=== PATIENT | male | born 1940 | race Caucasian/White ===

== ENCOUNTER 2017-10-08 05:36 | Day surgery (SDC) | payer MEDICARE ==
[2017-10-07 12:02] VITALS: BMI 25.0
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
[2017-10-08] MEDS ORDERED: CEFAZOLIN/Water 2 GM/20 ML SYRINGE ONE (06:12)
[2017-10-08] MEDS ORDERED: Thrombin 5000 UNITS/5 ML VIAL ONE (06:16)
[2017-10-08] MEDS ORDERED: Sodium Chloride 0.9% 10 ML ONE (06:16)
[2017-10-08] MEDS ORDERED: Fentanyl 100 MCG/2 ML VIAL ONE ×3 (06:32→11:16)
[2017-10-08 06:37] LABS: PTT 27.1 SEC (22.9-36.1); Prothrombin Time 13.6 SEC (12.0-14.7)
[2017-10-08] MEDS ORDERED: Phenylephrine 10 MG/NS 250 ML 250 ML ONE (06:38)
[2017-10-08] MEDS ORDERED: Albumin 5% 500 ML ONE (06:38)
--- NOTE | 2017-10-08 11:48 | OP ---
DATE OF PROCEDURE: 10/08/2017 SURGEON: Josemanuel Krishna M.D. PERSONAL PROPERTY APPRAISER: Audi Velarde PA-C PREOPERATIVE INDICATION: Treat pain, prevent neurological deterioration. PREOPERATIVE DIAGNOSES: Prior C7 lateral mass fracture with C7 radiculopathy, right side. POSTOPERATIVE DIAGNOSIS: Prior C7 lateral mass fracture with C7 radiculopathy, right side. OPERATIVE PROCEDURE: Anterior cervical diskectomy, intravertebral arthrodesis, placement of interver tebral biomechanical device, anterior cervical plating C6-C7, local morselized autograft, morselized Allograft, and operating microscope. PREOPERATIVE MEDICATIONS: Ancef 2 grams IV. DRAIN NUMBER: Zero. DRAIN TYPE: None. OPERATIVE DICTATION: The patient was brought to the operating room. General endotracheal anesthesia was induced. The patient was positioned supine with his head supported by gel-filled donut shaped h ead rest. A lateral fluoro radiograph was used to plan an incision. The front of the neck was steri al prepped and draped. We opened with a 10 blade knife and controlled bleeding with bipolar cauter y. We dissected sharply to the platysma and cut this muscle in line with our incision. We continued our dissection medial to the sternocleidomastoid, lateral to the trachea and esophagus down to the p revertebral space. The inferior reach of our dissection over the omohyoid was C5-6, we had to dissec larry below the omohyoid to C6-7. We placed a marker and took a lateral fluoro radiograph to confirm t he levels upon which we were operating. We then elevated the longus colli muscles off the anterior s urface of C6 and C7 and placed a self-retaining retractor. We incised the disk space with an 11 blad e knife. We placed distraction pins at C6 and C7 and distracted across the intervening interspace. The joint there was unstable and freely mobile. We removed disk contents using curets and rongeurs a nd then brought the operating microscope into the field. Under microscopic magnification using microsurgical techniques, we removed the remainder of the inter vertebral disk. We accessed the ventral epidural space with a micro curet and used a Kerrison rongeu r to remove the posterior osteophytes and intervertebral disk material from the spinal canal, decompr essing from one neural foramen all the way to the other. There was no further dural compression at t he completion of our diskectomy and osteophytectomy. We prepared the endplates for grafting with cur ledy and measured the height of the interspace to 9 mm with the bone rasp. A 9 mm PEEK graft was brou ght into the field. This was loaded with demineralized bone matrix and morselized autograft. The au tograft was obtained from osteophyte osteophytectomy. The bones were cleaned of all their soft tissu e attachments and added to demineralized bone matrix as our fusion substrate. The loaded a PEEK gabrielle t was advanced into the interspace at the appropriate depth, under radiographic guidance. We removed the distraction pins from C6 and C7. A 12 mm anterior cervical plate was brought into the field. W e drilled ferry pilot holes through the plate and affixed plate using 14 mm screws. We used 6 angle screws below and variable angle screws above. We engaged the locking mechanism over each of the 4 screws. We irrigated copiously with bacitracin irrigation. AP and lateral fluoro radiographs confirmed adeq uate position of our instrumentation. The bone quality was poor, in general. We ensured excellent h emostasis. We closed the wound in anatomic layers. We applied a sterile dressing. This was a clean case and no contamination.
[2017-10-08] MEDS ORDERED: Vecuronium 10 MG VIAL ONE (18:40)
[2017-10-08] MEDS ORDERED: Propofol 200 MG/20 ML VIAL ONE (18:40)
[2017-10-08] MEDS ORDERED: Glycopyrrolate 0.2 MG/ML 5 ML SYRINGE ONE (18:40)
[2017-10-08] MEDS ORDERED: Dexamethasone 20 MG/5 ML VIAL ONE (18:40)
[2017-10-08] MEDS ORDERED: PHENYLEPHRINE-NS 100 MCG/ML 10 ML SYRINGE ONE (18:40)
[2017-10-08] MEDS ORDERED: Ondansetron HCl/PF 4 MG/2 ML Vial ONE (18:40)
[2017-10-08] MEDS ORDERED: Lidocaine 1% PF 5 ML VIAL ONE (18:40)
[2017-10-08] MEDS ORDERED: CEFAZOLIN 1 GM VIAL ONE (18:40)
[2017-10-08] MEDS ORDERED: Sterile Water 10 ML VIAL ONE (18:40)
== END 2017-10-08 15:04 ==
LOC: SDC 05:36
PROVIDERS: ATTEND Neurological Surgery
PROC: 0RG10A0 Fusion of Cervical Vertebral Joint with Interbody Fusion Device, Anterior Approach, Anterior Column, Open Approach (ICD-10-PCS; principal; 2017-10-08)
DX: M54.12 Radiculopathy, cervical region (principal); S12.690S Other displaced fracture of seventh cervical vertebra, sequela; I25.10 Atherosclerotic heart disease of native coronary artery without angina pectoris; I25.5 Ischemic cardiomyopathy; I11.0 Hypertensive heart disease with heart failure; I50.9 Heart failure, unspecified; E11.9 Type 2 diabetes mellitus without complications; M19.90 Unspecified osteoarthritis, unspecified site; Z79.84 Long term (current) use of oral hypoglycemic drugs; Z79.02 Long term (current) use of antithrombotics/antiplatelets; Z79.82 Long term (current) use of aspirin; Z79.899 Other long term (current) drug therapy; Z91.041 Radiographic dye allergy status; Z95.1 Presence of aortocoronary bypass graft; Z95.810 Presence of automatic (implantable) cardiac defibrillator; Z90.49 Acquired absence of other specified parts of digestive tract; Z98.890 Other specified postprocedural states; Z87.891 Personal history of nicotine dependence; Z86.73 Personal history of transient ischemic attack (TIA), and cerebral infarction without residual deficits; Z85.46 Personal history of malignant neoplasm of prostate
CPT/HCPCS: 20930; 20936; 22551; 22853; 76001; 85610; 85730; 96374; C1713 ×2; P9045; 36415; A4216; J0131; J0690; J1100; J2001; J2405; J2704; J3010; J3490

== ENCOUNTER 2018-09-10 18:20 | Inpatient (IN) | payer MEDICARE ==
[2018-09-10 20:11] LABS: Troponin I 0.037 ng/mL (< 0.028)
[2018-09-10 22:54] LABS: Troponin I 0.046 ng/mL (< 0.028)
[2018-09-10] MEDS ORDERED: hydrALAZINE 20 MG/ML VIAL SLOW IVP PRN (23:11)
[2018-09-10] MEDS ORDERED: HYDROcodone/Acetaminophen 10/325 mg Tablet ONE (23:18)
[2018-09-11 00:47] VITALS: BMI 23.8
[2018-09-11] MEDS ORDERED: Dextrose 5% in Water 1,000 ML IV PRN (01:59)
[2018-09-11] MEDS ORDERED: Dextrose 50% Abboject 50 ML SYRINGE SLOW IVP PRN (01:59)
[2018-09-11] MEDS ORDERED: HumaLOG 300 UNITS/3 ML VIAL SC PRN (01:59)
--- NOTE | 2018-09-11 02:24 | HP ---
DATE OF SERVICE: 09/10/2018 PRIMARY CARE PHYSICIAN: Steven Alva M.D. CHIEF COMPLAINT: Dizziness. HISTORY OF PRESENT ILLNESS: Mr. Mendoza is a pleasant 78-year-old gentleman who was seen at [facility] following transfer from [place]. He reports that over the last 2 weeks, he has been dizzy. He reports that the dizziness is on and off, no known aggravating or relieving factors. He also had a tingling sensation in his left leg. At this time, he reports that he is not dizzy and the tingling sensation in his left leg is no longer there. He presented to the emergency room at [place] for symptoms of dizziness and tingling sensation in his left lower extremity. He had CT scan done at [place], which showed cortical atrophy and deep white matter ischemic changes, but no evidence of acute intracranial abnormality. He was mainly transferred here for Neurology consult. Patient denies any chest pain. He denies any fevers or chills. Patient reports fall 2 nights ago. He reports that he fell while trying to get up. He denies any loss of consciousness or head trauma. REVIEW OF SYSTEMS: All other systems reviewed and found to be negative. PAST MEDICAL HISTORY: Patient is a poor historian, denies any past medical history. His medication list indicates that he has a history of hypertension, coronary artery disease, diabetes mellitus, dyslipidemia, and benign prostate hypertrophy. PAST SURGICAL HISTORY: Coronary artery bypass graft surgery and AICD. SOCIAL HISTORY: Patient denies tobacco use, alcohol use, or recreational drug use. CODE STATUS: I discussed his code status. He is FULL CODE. ALLERGIES: IODINE. CURRENT MEDICATIONS: Amlodipine 5 mg 2 times a day, aspirin 81 mg daily, Coreg 12.5 mg 2 times a day, Crestor 10 mg at bedtime, Flomax 0.4 mg 3 times a day, Lasix 20 mg daily, metformin 500 mg 2 times a day, Plavix 75 mg daily, potassium chloride 10 mEq daily, and Pepcid 20 mg daily. FAMILY HISTORY: No family history of premature coronary artery disease. PHYSICAL EXAMINATION: GENERAL: Mr. Mendoza is awake and alert, not in acute distress. VITAL SIGNS: Blood pressure is 151/77, pulse 85, respiratory rate 18, and oxygen saturation 94% on room air. He is afebrile. EYES: No scleral icterus, no conjunctival pallor. ENT: Moist mucosal membranes, no oropharyngeal erythema or exudates. NECK: Supple, nontender, trachea is midline. RESPIRATORY: Accessory muscles of breathing are not active. Chest wall movements are symmetric bilaterally. Lungs are clear to auscultation, without wheeze, rhonchi, or crepitations. CARDIOVASCULAR: S1 and S2 are heard, regular. Peripheral pulses palpable. No carotid bruit, no pericardial rub. ABDOMEN: Soft, nontender, bowel sounds are heard, no hepatomegaly, no splenomegaly. NEUROLOGIC: Cranial nerves II through XII intact. Power is 5/5 in all 4 extremities. No focal motor or sensory deficits. Deep tendon reflexes 2+, plantar is down going bilaterally. MUSCULOSKELETAL: Power is 5/5 in all 4 extremities. SKIN: No rashes or subcutaneous nodules. LYMPHATIC: No cervical lymphadenopathy. PSYCHIATRIC: Normal mood, normal affect, patient is oriented to person and place, not to time. LABORATORY DATA: Mr. Mendoza's labs and investigations were reviewed. I reviewed his electrocardiogram, which shows normal sinus rhythm, no ST changes to suggest an acute coronary syndrome. I also reviewed his chest x-ray, which does not show any pulmonary infiltrates. He has stable small nodularity foci in the left lower lobe. I also reviewed noncontrast CT scan of the brain, which does not show any acute intracranial abnormality. He does have soft tissue debris in the right and left external auditory canals. He has normal white count, normal hemoglobin, normal platelet count, troponin I indeterminate at 0.046, normal sodium, normal potassium, and normal creatinine. AST is elevated at 57, but total bilirubin, ALT, and alkaline phosphatase levels are normal. ASSESSMENT AND PLAN: Mr. Mendoza is a pleasant 78-year-old gentleman who was seen at [facility] on 09/10/2018. Problem list includes: 1. Dizziness: Etiology is unclear, most likely secondary to peripheral causes , given soft tissue debris in the external ear canal. He will be admitted to the hospital in observation status. ENT and Neurology services are being consulted. I cannot obtain an MRI of the brain because of defibrillator. We will check echocardiogram and carotid Dopplers. 2. Elevated troponin: Troponin I is in indeterminate range. This could be atypical presentation of acute coronary syndrome in this diabetic patient. We will consult Cardiology for opinion and help with management. 3. Diabetes mellitus, type 2: Start Accu-Cheks, insulin sliding scale. 4. Benign prostatic hypertrophy: Continue Flomax. 5. Hypertension: Resume home medications, monitor vital signs and titrate antihypertensives as needed. Many thanks for allowing me to participate in your patient's care. Please feel free to contact me with any questions or concerns. We will also interrogate AICD. LEVEL OF RISK: High. LEVEL OF COMPLEXITY: High. MTDD
[2018-09-11 02:30] LABS: Troponin I 0.052 ng/mL (< 0.028)
[2018-09-11 04:03] LABS: Anion Gap 11 mmol/L (10-20); BUN (Urea Nitrogen) 24 mg/dL (8.4-25.7); Calc. Creatinine Clearance 68 mL/min (70-130); Carbon Dioxide 27 mmol/L (23-31); Cardiac Risk 4.3 (Less than 4.5); Chloride 108 mmol/L (98-107); Cholesterol 162 mg/dl (< 200 Desired); Estimated GFR-MDRD 70; Glucose 129 mg/dL (83-110); HDL Cholesterol 38 mg/dL (>60 Neg Risk); LDL Cholesterol, Calculated 101 mg/dL; Potassium 3.5 mmol/L (3.5-5.1); Sodium 142 mmol/L (136-145); Triglycerides 114 mg/dL (Less than 150)
[2018-09-11 04:12] LABS: #Eosinphils 0.1 thou/uL (0.0-0.7); #Lymphocytes 1.3 thou/uL (1.20-3.40); #Monocytes 0.6 thou/uL (0.11-0.59); #Neutrophils 4.1 thou/uL (1.40-6.50); %Basophils 0.7 % (0.0-1.0); %Eosinophils 1.2 % (0.0-10.0); %Monocytes 10.1 % (0.0-10.0); Hemoglobin 12.4 g/dL (14.0-18.0); Mean Corpuscular Hemoglobin 28.1 pg (27.0-31.0); Mean Corpuscular Volume 85.2 fL (78.0-98.0); Mean Platelet Volume 8.1 fL (7.4-10.4); Platelet Count 178 thou/uL (130-400); RBC Distribution Width 14.2 % (11.5-14.5); Red Blood Cell (RBC) Count 4.41 mill/uL (4.70-6.10); White Blood Cell (WBC) Count 6.1 thou/uL (4.8-10.8)
[2018-09-11] MEDS ORDERED: HYDROcodone/Acetaminophen 10/325 mg Tablet PO PRN (06:20)
[2018-09-11] MEDS ORDERED: Atorvastatin Calcium 10 MG TAB PO SCH (09:00)
[2018-09-11] MEDS ORDERED: Prevnar 13-Val Conj/PF 0.5 ML SYRINGE IM ONE (09:00)
[2018-09-11] MEDS: Clopidogrel Bisulfate 75 MG TAB PO SCH (09:53)
[2018-09-11] MEDS: Carvedilol 25 MG TAB PO SCH ×2 (09:53→21:36)
[2018-09-11] MEDS: Tamsulosin HCl 0.4 MG CAP PO SCH (09:53)
[2018-09-11] MEDS: Amlodipine 5 MG TAB PO SCH (09:53)
[2018-09-11] MEDS: Furosemide 20 MG TAB PO SCH (09:53)
[2018-09-11] MEDS: Enoxaparin Sodium 40 MG/0.4 ML SYRINGE SC SCH (09:54)
--- NOTE | 2018-09-11 10:34 | CON ---
DATE OF CONSULTATION: 09/11/2018. CONSULTING PHYSICIAN: Hospitalist service. IMPRESSION: 1. Probable lacunar stroke with mild left-sided weakness. 2. Hypertension. 3. Patient is on maximum medical stroke prevention therapy. PLAN: 1. PT assessment to determine whether inpatient rehabilitation is needed. 2. Carotid ultrasound. 3. Echocardiogram. HISTORY OF PRESENT ILLNESS: Mr. Mendoza is a 78-year-old man who lives alone. He reports over the week, he had the abrupt change in his balance. He had difficulty getting up from his couch and fe ll to the floor. He decided to go to the hospital to get it checked out. He had a CAT scan of the b rain, which showed small vessel ischemic changes. He was transferred here for further evaluation. Flakita salcedo has a defibrillator and he is not able to have an MRI. He denies any lightheadedness or dizziness. He has not noticed any slurred speech or lateralized weakness or incoordination. He reports being compliant with his medication. PAST MEDICAL HISTORY: Hypertension, hyperlipidemia. ALLERGIES: IODINE. SOCIAL HISTORY: He lives alone. No tobacco or alcohol use. FAMILY HISTORY: Noncontributory. REVIEW OF SYSTEMS: No complaint of headache, nausea, vomiting, vertigo, chest pain, shortness of nahid ath. PHYSICAL EXAMINATION: VITAL SIGNS: Blood pressure 167/80, pulse 67, respirations 16, temperature 97.8. HEENT: Pupils are equal and reactive. Conjunctivae clear. Oropharynx clear. NECK: Supple. EXTREMITIES: No cyanosis. NEUROLOGIC: He is alert and cooperative. His speech is fluent and clear. Cranial nerves were intac t, although there was some subtle flattening noted on the left. Motor exam showed symmetric strength in the upper extremities. Gait testing showed a slight tendency to drag the left leg. Plantar resp onses were downgoing bilaterally. No tremor or dysmetria was seen. LABORATORY STUDIES: Unremarkable CBC and serum chemistry panel, lipid panel showed a ratio of 4.3. SUMMARY: This is a 78-year-old gentleman who has some mild left-sided weakness that is causing him s ome gait difficulties. He is already on aspirin, Plavix, and Lipitor. I do not see any changes that we can make at this point. Ultrasounds can be done to rule out any extracranial stenosis that might require surgery, otherwise, he may need some inpatient rehabilitation to assure that he is safe to r eturn home.
--- NOTE | 2018-09-11 10:41 | ULT ---
BILATERAL CAROTID DUPLEX ULTRASOUND: History: Syncope, dizziness. FINDINGS: Real-time color doppler evaluation of the right and left carotid systems shows some calcified plaque formation bilaterally, slightly more prominent on the left. On the right side peak systolic velocity of the common carotid were 74 cm/sec, internal carotid veloc ities were 121 cm/sec, external carotid velocities 133 cm/sec. On the left side peak systolic velocity of the common carotid were 91 cm/sec, internal carotid veloci ties were 154 cm/sec, external carotid velocities 170 cm/sec. Vertebral flow is antegrade bilaterally. IMPRESSION: 1. No evidence of hemodynamically significant stenosis of the right internal carotid artery. 2. Findings that would suggest 50-69% narrowing of the left internal carotid artery, probably on the lower end of this range. Further evaluation with CT angiography may be beneficial. POS: OLYA
--- NOTE | 2018-09-11 13:28 | CON ---
DATE OF CONSULTATION: 09/11/2018 REASON FOR CONSULTATION: Slightly detectable troponin levels in a patient with history of congestive heart failure, coronary artery disease and defibrillator implantation. HISTORY OF PRESENT ILLNESS: Mr. Mendoza is a 78-year-old man. He was transferred here for evaluation after being found to have a small stroke. The patient has been seen by Dr. Tay who does think this is the probable lacunar stroke with mild left-sided weakness. The patient lives alone who reports over the last week had an abrupt change in his balance. He had d ifficulty getting up from his couch and fell to the floor, went to the hospital. CT scan showed smal l vessel ischemic changes. He has a defibrillator implanted; therefore, did not have MRI. No chest pain or pressure, no heavine ss or squeezing. REVIEW OF SYSTEMS: Constitutional: No significant weight gain or loss. Vision: No changes. Heari ng: No changes. Pulmonary: No cough or wheezing. Gastrointestinal: No nausea, vomiting, diarrhea . Skin: No rashes. Neurologic: No unilateral weakness or numbness. Psychiatric: No unusual depr ession or anxiety. PAST MEDICAL HISTORY: 1. He has a history of coronary artery disease. 2. History of congestive heart failure. 3. History of previous bypass surgery. 4. Diabetes. 5. Dyslipidemia. PAST SURGICAL HISTORY: 1. Previous bypass surgery. 2. Previous defibrillator implantation. CODE STATUS: FULL CODE. ALLERGIES: IODINE. MEDICATIONS: 1. Amlodipine 5 mg twice a day. 2. Aspirin 81 mg a day. 3. Coreg 12.5 mg 2 times a day. 4. Crestor 10 mg a day. 5. Lasix. 6. Metformin. 7. Plavix. 8. Potassium. 9. Pepcid. He is not listed as being on an ASHLEY inhibitor or angiotensin receptor ministerio. PHYSICAL EXAMINATION: GENERAL: A pleasant elderly gentleman in no distress. VITAL SIGNS: Blood pressure 143/72, pulse 63, regular. LUNGS: Clear. CARDIAC: Normal S1, normal S2. ABDOMEN: Soft, nontender. EXTREMITIES: No clubbing or cyanosis, no edema. SKIN: Warm and dry. PERTINENT LABORATORY FINDINGS: The hemoglobin is 12.4. Troponin 0.046 followed by 0.052. LDL hector sterol is 101. The patient was seen here previously many years ago. He did undergo catheterization in 2006, found to have 3-vessel disease, was found to have normal left main, LAD 70% proximal with calcium and patent internal mammary artery graft, circumflex small distr ibution vessel with diffuse atherosclerotic disease. Right coronary was occluded with saphenous vein graft patent with degenerative disease throughout the vessel. Medical therapy being the only option . The patient had defibrillator implanted in view of severely depressed left ventricular function done in [address] Osito Christopher. At that time, the patient had an implantable defibrillator placed, dual chamber Medtronic device. The patient indicates he has not seen a yeast supervisor in the last 5 years, has been seeing Dr. Alva. EKG does reveal sinus rhythm with bifascicular block. ASSESSMENT: 1. Small stroke thought to be lacunar. 2. Coronary artery disease. 3. Hypercholesterolemia. 4. History of congestive heart failure. 5. History of bypass surgery in the with a catheterization in 2006 showing patent internal funmi samanta to the LAD, patent graft to the right coronary with diffuse atherosclerosis in the graft. At th at time in 2006, ejection fraction was noted to be 20% with inferior posterior akinesis. 6. The patient has apparently not been compliant with followup. PLAN: 1. Assess Medtronic to interrogate the pacemaker defibrillator. He thinks he is doing at home, but he is not sure. 2. I have asked him to follow up with me or some other yeast supervisor concerning cardiac followup. Kika oreilly, he asked for my card, it is unclear whether he may or may not be interested in followup, but his initial response was outlined above. 3. Presently, we would increase the statin dose. We will have the defibrillator checked. Echocardi ogram is pending. Nothing further to do from a cardiac standpoint. If the patient wishes to follow up with me as an outpatient, I will be glad to do so, but he has indicated he may or may not be inter ested. Roger will be given my card.
--- NOTE | 2018-09-11 15:21 | PDOC.PN ---
- Subjective Encounter Start Date: 09/11/18 Encounter Start Time: 10:30 -: f/u on admission for weakness, inability to get up after fall, possible CVA -: Patient denies chest pain, dizziness, complaints today - Objective Resuscitation Status: Resuscitation Status FULL:Full Resuscitation Vital Signs & Weight: Vital Signs (12 hours) Temp Pulse Resp BP Pulse Ox 09/11/18 11:54 98.0 F 63 20 143/72 H 96 09/11/18 09:53 67 09/11/18 07:54 97.8 F 67 16 167/80 H 96 09/11/18 04:00 98.0 F 67 18 134/64 92 L Weight Weight 82.1 kg Result Diagrams: 09/11/18 01:23 09/11/18 01:23 Additional Labs: Accuchecks 09/11/18 09/11/18 09/10/18 10:31 06:08 22:11 POC Glucose 101 101 93 Phys Exam - Physical Examination HEENT: PERRLA, moist MMs bilateral TMs obscured by cerumen Neck: no nodes, no JVD Respiratory: no rhonchi, clear to auscultation bilateral Cardiovascular: RRR, no significant murmur Gastrointestinal: soft, non-tender, positive bowel sounds Musculoskeletal: no edema, pulses present drift noted to left leg, mild left sided weakness to LUE, LLL Lymphatic: no nodes Psychiatric: normal affect, A&O x 3 Skin: no rash, normal turgor Dx/Plan (1) Dizziness Code(s): R42 - DIZZINESS AND GIDDINESS Status: Acute (2) Diabetes mellitus Code(s): E11.9 - TYPE 2 DIABETES MELLITUS WITHOUT COMPLICATIONS Status: Acute (3) Weakness due to acute cerebrovascular accident (CVA) Code(s): I63.9 - CEREBRAL INFARCTION, UNSPECIFIED; R53.1 - WEAKNESS Status: Acute (4) CAD (coronary artery disease) Code(s): I25.10 - ATHSCL HEART DISEASE OF [place] CORONARY ARTERY W/O ANG PCTRS Status: Acute (5) Dyslipidemia Code(s): E78.5 - HYPERLIPIDEMIA, UNSPECIFIED Status: Acute - Plan -: Neuro consult done- probably lacunar CVA with left sided weakness -: Rehab consult/screening -: Continue to monitor labs/VS -: Cardiology consult, AICD interr, saw no Afib, no anti-coag needed * .
--- NOTE | 2018-09-11 22:25 | PDOC.EVN ---
Event Note - Event Note Event Note: Case reviewed. Patient seen and examined. No significant neuro deficits on my exam. Heart reg, lungs clear, abd. benign. Imaging reviewed. No large infarct , only small vessel white matter atrophy. Carotid US only reveals mild to mod increased velocity on left. Sx suggest right sided pathology. Already on antiplatelet therapy and statin. Does not want rehab, wants to go home. Anticipate discharge in am.
[2018-09-12 07:55] VITALS: BP 161/77; TEMP 98.2
[2018-09-12] MEDS ORDERED: Atorvastatin Calcium 20 MG TAB PO SCH (09:00)
[2018-09-12] MEDS: Tamsulosin HCl 0.4 MG CAP PO SCH (10:17)
[2018-09-12] MEDS: Clopidogrel Bisulfate 75 MG TAB PO SCH (10:17)
[2018-09-12] MEDS: Carvedilol 25 MG TAB PO SCH (10:18)
[2018-09-12] MEDS: Enoxaparin Sodium 40 MG/0.4 ML SYRINGE SC SCH (10:18)
[2018-09-12] MEDS: Furosemide 20 MG TAB PO SCH (10:18)
[2018-09-12] MEDS: Amlodipine 5 MG TAB PO SCH (10:18)
--- NOTE | 2018-09-12 13:13 | DIS ---
DATE OF ADMISSION: 09/10/2018 DATE OF DISCHARGE: 09/12/2018 PRIMARY CARE PHYSICIAN: Steven Alva M.D. CONSULTANTS: Dr. Tay for Neurology and Dr. Handley for Cardiology. CODE STATUS: FULL. PROCEDURES: The patient had a carotid Doppler done, which showed no evidence of hemodynamically sign ificant stenosis to the right carotid artery. Suggests a 50-69 narrowing of left internal carotid ar xavi on the left. The patient may need a CTA as an outpatient, to follow up as warranted. Patient a lso had a brain CT, which showed a cortical atrophy with deep white matter ischemic changes. Chest x -ray was performed and showed some stable nodularity in the left lower lobe. Atherosclerosis of the aorta with ectasia. DISCHARGE DIAGNOSES: 1. Lacunar infarction. 2. Diabetes mellitus, type 2. 3. Benign prostatic hypertrophy. 4. Hypertension. REVIEW OF SYSTEMS: The patient denies any dizziness. Denies any trouble ambulating to the bathroom. Denies any fevers or chills. Denies any numbness, tingling, or other focal neuro changes. All oth er systems are reviewed and negative. PHYSICAL EXAMINATION: VITAL SIGNS: Temperature 99.4, pulse 67, respirations are 16, blood pressure 147/70. GENERAL: Mr. Mendoza is awake, alert, not in any acute distress. EYES: Pupils are equal and reactive to light. ENT: Moist mucosal membranes. NECK: Supple, nontender, trachea is midline. RESPIRATORY: Clear breath sounds to auscultation. No wheezes or rhonchi. CARDIOVASCULAR: S1 and S2, regular rhythm. Peripheral pulses are palpable. ABDOMEN: Soft, nontender. Bowel sounds are heard x4 quadrants. NEUROLOGIC: Cranial nerves II-XII are intact. Strength is equal in all 4 extremities. SKIN: No rashes or lesions are noted. Warm, dry, and intact. PSYCHIATRIC: The patient is in good mood and is ready to be discharged home. HISTORY OF PRESENT ILLNESS AND HOSPITAL COURSE: Mr. Mendoza is a pleasant 78-year-old gentleman, who was seen at the ER in [facility]. He states he has been dizzy on and off for 2 weeks. Report s, on day of admission, he had attempted to get from the couch and stand up. He reports he tried to sit up and ended up falling back. He was able to get himself off the couch, but then fell forward. He reports he was on the ground for several hours before he could ambulate to get to his phone. He c alled for some help and they took him to the emergency room. While hospitalized, the patient denies any acute distress. Denies any current dizziness or weakness. Denies any issues with ambulating. Dorinda Handley was consulted, who had his AICD interrogated. There were no acute findings. He recommende d we increase his Lipitor. Echocardiogram is still pending. Dr. Handley would like to see the patien t in his office in the next 2-[address] Tay also saw the patient during this admission. He h as had a probable lacunar stroke with some mild left-sided weakness. Dr. Tay suggested some inscheurer hospital rehabilitation, which the patient refused. The patient will be discharged home with followup w ith his PCP, Dr. Alva. Follow up with Dr. Tay and follow up with Dr. Handley. Patient has an a llergy to IODINE. Home medications were restarted on discharge. Patient has amlodipine-olmesartan 5/20 p.o. daily, asp irin 81 mg p.o. daily, Coreg 25 mg p.o. b.i.d., Plavix 75 mg p.o. daily, Lasix 20 mg p.o. daily, Tyle nol 1 tab p.o. q.6 hours as needed for pain, ibuprofen 800 mg p.o. t.i.d. as needed for pain, Flomax 0.4 mg p.o. daily, and Lipitor was increased from 10 to 20 mg daily. DISPOSITION: The patient is in stable condition on discharge and will be discharged to home. REFERRALS: He should see Dr. Alva within the next week. He should see Dr. Handley in the next 2-4 weeks, and see Dr. Tay in his first available appointment.
== END 2018-09-12 12:44 | disposition home or self-care (01) | DRG 66 ==
LOC: ERS 18:20 → 2SE 19:10 → OBSVTOIN 09-11 12:25
PROVIDERS: ADMIT Internal Medicine; ATTEND Internal Medicine
DX: I63.81 Other cerebral infarction due to occlusion or stenosis of small artery (principal); I25.10 Atherosclerotic heart disease of native coronary artery without angina pectoris; E11.9 Type 2 diabetes mellitus without complications; N40.0 Benign prostatic hyperplasia without lower urinary tract symptoms; E78.5 Hyperlipidemia, unspecified; I50.9 Heart failure, unspecified; I11.0 Hypertensive heart disease with heart failure
CPT/HCPCS: 36415; 36416; 80048; 80061; 84484; 85025; 90471; 90670; 93306; 93880; 96360; 96361; G0009; G8978-GP-CI; G8979-GP-CI; G8980-GP-CI; G8987-GO-CH; G8988-GO-CH; G8989-GO-CH; J1650

== ENCOUNTER 2019-01-20 16:32 | Inpatient (IN) | payer MEDICARE ==
[2019-01-20] MEDS ORDERED: cefTRIAXone\\ROCEPHIN 2 GM VIAL ONE (17:32)
[2019-01-20] MEDS ORDERED: Azithromycin 500 MG VIAL ONE (18:22)
[2019-01-20] MEDS ORDERED: HumaLOG 300 UNITS/3 ML VIAL SC PRN ×2 (20:01)
[2019-01-20] MEDS ORDERED: Dextrose 50% Abboject 50 ML SYRINGE SLOW IVP PRN (20:01)
[2019-01-20] MEDS ORDERED: Ondansetron ODT 4 MG TAB PO PRN (20:01)
[2019-01-20] MEDS ORDERED: Senokot S 8.6-50 MG TAB PO PRN (20:01)
[2019-01-20] MEDS ORDERED: Guaifenesin DM 100-10/5 ML UDCUP PO PRN (20:01)
[2019-01-20] MEDS ORDERED: Ondansetron PF 4 MG/2 ML Vial IVP PRN (20:01)
[2019-01-20] MEDS ORDERED: Acetaminophen 650 MG Suppository PR PRN (20:01)
[2019-01-20] MEDS ORDERED: Dextrose 5% in Water 1,000 ML IV PRN (20:01)
[2019-01-20 20:51] LABS: Troponin I 0.023 ng/mL (< 0.028)
[2019-01-20] MEDS: Carvedilol 25 MG TAB PO SCH (21:04)
[2019-01-20] MEDS: Famotidine 20 MG TAB PO SCH (21:04)
[2019-01-20] MEDS: methylPREDNISolone Sod Succ 40 MG VIAL IVP SCH (23:27)
[2019-01-21] MEDS ORDERED: Lorazepam 2 MG/ML VIAL ONE (00:38)
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
[2019-01-21] MEDS: methylPREDNISolone Sod Succ 40 MG VIAL IVP SCH ×3 (06:26→17:39)
[2019-01-21] MEDS: Furosemide 20 MG/2 ML VIAL SLOW IVP SCH ×2 (06:28→14:19)
[2019-01-21 06:31] LABS: #Lymphocytes 0.6 thou/uL (1.20-3.40); #Monocytes 0.1 thou/uL (0.11-0.59); #Neutrophils 2.8 thou/uL (1.40-6.50); %Basophils 0.1 % (0.0-1.0); %Eosinophils 0.1 % (0.0-10.0); %Lymphocytes 15.9 % (21.0-51.0); %Monocytes 2.5 % (0.0-10.0); %Neutrophils 81.3 % (42.0-75.0); Hemoglobin 13.4 g/dL (14.0-18.0); Mean Corpuscular Hemoglobin 28.6 pg (27.0-31.0); Mean Corpuscular Volume 89.5 fL (78.0-98.0); Mean Platelet Volume 7.4 fL (7.4-10.4); Platelet Count 192 thou/uL (130-400); White Blood Cell (WBC) Count 3.5 thou/uL (4.8-10.8)
[2019-01-21 06:40] LABS: Anion Gap 17 mmol/L (10-20); BUN (Urea Nitrogen) 19 mg/dL (8.4-25.7); Calc. Creatinine Clearance 72 mL/min (70-130); Calcium 8.7 mg/dL (7.8-10.44); Carbon Dioxide 26 mmol/L (23-31); Chloride 102 mmol/L (98-107); Estimated GFR-MDRD 82; Glucose 141 mg/dL (83-110); Potassium 3.6 mmol/L (3.5-5.1); Sodium 141 mmol/L (136-145)
[2019-01-21 06:46] LABS: Troponin I 0.012 ng/mL (< 0.028)
--- NOTE | 2019-01-21 07:24 | PDOC.PN ---
- Subjective Encounter Start Date: 01/21/19 Encounter Start Time: 07:22 Subjective: restless, confused, oriented x1 - Objective Resuscitation Status - Order Detail: 01/20/19 18:11 Resuscitation Status Routine Resuscitation Status: FULL: Full Resuscitation Discussed with: Patient LARRY Reviewed: Yes Vital Signs & Weight: Vital Signs (12 hours) Temp Pulse Resp BP Pulse Ox 01/21/19 04:30 97.2 F L 91 20 160/81 H 93 L 01/21/19 00:30 69 20 148/73 H 92 L 01/20/19 20:35 92 L 01/20/19 20:21 80 18 91 L 01/20/19 19:45 97.4 F L 85 16 154/80 H 92 L Weight Weight 167 lb 1.6 oz I&O: 01/20/19 01/21/19 01/22/19 06:59 06:59 06:59 Intake Total 220 Output Total 350 Balance -130 Result Diagrams: 01/21/19 05:39 01/21/19 05:39 Additional Labs: Accuchecks 01/21/19 06:17 POC Glucose 143 H Phys Exam - Physical Examination Neck: no JVD clear exc scant post rales Cardiovascular: RRR, no significant murmur Gastrointestinal: soft, positive bowel sounds Musculoskeletal: no edema Dx/Plan (1) Encephalopathy acute Code(s): G93.40 - ENCEPHALOPATHY, UNSPECIFIED Status: Acute (2) Acute on chronic systolic heart failure Code(s): I50.23 - ACUTE ON CHRONIC SYSTOLIC (CONGESTIVE) HEART FAILURE Status : Acute Comment: last echo lvef 30-35& (3) Cardiomyopathy Code(s): I42.9 - CARDIOMYOPATHY, UNSPECIFIED Status: Chronic Qualifiers: Cardiomyopathy type: unspecified Qualified Code(s): I42.9 - Cardiomyopathy , unspecified (4) Acute respiratory failure with hypoxia Code(s): J96.01 - ACUTE RESPIRATORY FAILURE WITH HYPOXIA Status: Acute (5) CAD (coronary artery disease) Code(s): I25.10 - ATHSCL HEART DISEASE OF [place] CORONARY ARTERY W/O ANG PCTRS Status: Chronic Qualifiers: Coronary Disease-Associated Artery/Lesion type: [place] artery [place] vs. transplanted heart: [place] heart Associated angina: without angina Qualified Code(s): I25.10 - Atherosclerotic heart disease of [place] coronary artery without angina pectoris (6) Diabetes mellitus Code(s): E11.9 - TYPE 2 DIABETES MELLITUS WITHOUT COMPLICATIONS Status: Chronic Qualifiers: Diabetes mellitus type: type 2 Diabetes mellitus shelter insulin use: without computer terminal operator use Diabetes mellitus complication status: without complication Qualified Code(s): E11.9 - Type 2 diabetes mellitus without complications (7) Dyslipidemia Code(s): E78.5 - HYPERLIPIDEMIA, UNSPECIFIED Status: Chronic - Plan stat ABG, D-dimer -: FU d-dimer high- ct chest PE protocol, will need prep for contrast allergy -: start lovenox- PE protocol -: discussed with Dr Dennis * .
[2019-01-21 07:54] LABS: Actual Bicarbonate (HCO3a) 28.3 mEq/L (22-28); Analyzer IN Cardio OR; Base Excess (BEa) 2.2 mEq/L (-2.0 to +3.0); CO2 Tension 49.8 mmHg (35.0-45.0); Calcium, Ionized 1.15 mmol/L (1.12-1.30); O2 Tension (PaO2) 84.9 mmHg (> 70.0); Potassium - ABG Lab 3.41 mmol/L (3.70-5.30); Puncture Site RRA; pH, Arterial 7.37 (7.35-7.45)
[2019-01-21] MEDS: Lorazepam 2 MG/ML VIAL SLOW IVP PRN (07:59)
[2019-01-21] MEDS: Carvedilol 25 MG TAB PO SCH ×2 (08:00→21:53)
[2019-01-21] MEDS: Famotidine 20 MG TAB PO SCH ×2 (08:00→21:54)
[2019-01-21] MEDS: Clopidogrel Bisulfate 75 MG TAB PO SCH (08:00)
[2019-01-21] MEDS: Atorvastatin Calcium 20 MG TAB PO SCH (08:00)
[2019-01-21] MEDS: Amlodipine 5 MG TAB PO SCH (08:00)
[2019-01-21] MEDS: Aspirin Chewable 81 MG TAB PO SCH (08:00)
[2019-01-21] MEDS: Tamsulosin HCl 0.4 MG CAP PO SCH (08:00)
[2019-01-21] MEDS ORDERED: AMLODIPINE BES PO SCH (09:00)
[2019-01-21] MEDS ORDERED: OLMESARTAN MED PO SCH (09:00)
[2019-01-21] MEDS ORDERED: Enoxaparin Sodium 40 MG/0.4 ML SYRINGE SC SCH (09:00)
--- NOTE | 2019-01-21 11:32 | CON ---
DATE OF CONSULTATION: HISTORY OF PRESENT ILLNESS: The patient is a 78-year-old gentleman, who was admitted with dyspnea. The patient is unable to give any type of coherent history. The patient at this time is sedated. The patient has a history of ischemic cardiomyopathy. He has previously undergone coronary artery bypass graft surgery. He has also had placement of automatic implantable cardiac defibrillator. From the records, the patient apparently presented to the [facility] , markedly dyspneic, and was found to be hypoxic. He was transferred to [place] for further evaluation. PAST MEDICAL HISTORY: 1. Coronary artery disease. 2. Ischemic cardiomyopathy. 3. Hypertension. 4. Dyslipidemia. 5. COPD. PAST SURGICAL HISTORY: 1. Coronary artery bypass surgery. 2. Neck surgery. SOCIAL HISTORY: Nonsmoker. ALLERGIES: IODINE. MEDICATIONS: See nursing list. REVIEW OF SYSTEMS: Not obtainable. PHYSICAL EXAMINATION: GENERAL: This is a sedated gentleman, who does not appear to be in acute distress with a blood pressure 166/79. NECK: Showed no jugular venous distention. LUNGS: Clear to auscultation. HEART: Regular rate and rhythm. Normal S1 and S2. ABDOMEN: Nondistended. EXTREMITIES: Showed no edema. LABORATORY RESULTS: Sodium 141, potassium 3.6, chloride 102, bicarb 26, BUN 19, creatinine 0.89, glucose is 141. Troponin is 0.012. His white blood cell count is 3.5, hemoglobin 13.4, hematocrit 42.0, and platelet 192. D-dimer was 1.52. His EKG revealed him to have normal sinus rhythm with a right bundle-branch block, left anterior fascicular block. No acute ST-T wave changes. Chest x-ray revealed clear lung nesbitt with no evidence of pulmonary edema. IMPRESSION: 1. Shortness of breath with hypoxia. 2. History of coronary artery bypass graft surgery. 3. Ischemic cardiomyopathy. 4. History of automated implantable cardioverter-defibrillator placement. 5. Diabetes mellitus. 6. Dyslipidemia. This gentleman presents with acute dyspnea and hypoxia. His chest x-ray shows no evidence of pulmonary edema. His lung nesbitt are clear on exam. From a cardiac standpoint, I am most concerned about the possibility of a pulmonary embolus. We will obtain a CT scan to rule this out to evaluate for possible thromboembolism. We will check the patient's echocardiogram. We will follow this patient with you through his hospitalization. Job ID: [id number] GINA
[2019-01-21] MEDS: cefTRIAXone\\ROCEPHIN 1 GM in Sodium Chloride 0.9% 100 ML IVPB SCH (17:38)
[2019-01-21] MEDS: Azithromycin 500 MG in Sodium Chloride 0.9% 250 ML 250 ML IVPB SCH (18:22)
[2019-01-21] MEDS: predniSONE 50 MG TAB PO SCH (21:54)
[2019-01-21] MEDS: Enoxaparin Sodium 80 MG/0.8 ML SYRINGE SC SCH (21:54)
[2019-01-22] MEDS: methylPREDNISolone Sod Succ 40 MG VIAL IVP SCH ×5 (00:58→23:29)
[2019-01-22] MEDS: predniSONE 50 MG TAB PO SCH ×2 (00:58→08:11)
[2019-01-22] MEDS: Furosemide 20 MG/2 ML VIAL SLOW IVP SCH ×2 (05:25→12:49)
[2019-01-22] MEDS ORDERED: diphenhydrAMINE 50 MG CAP PO SCH (08:00)
[2019-01-22] MEDS: Carvedilol 25 MG TAB PO SCH ×2 (08:12→22:12)
[2019-01-22] MEDS: Atorvastatin Calcium 20 MG TAB PO SCH (08:13)
[2019-01-22] MEDS: Clopidogrel Bisulfate 75 MG TAB PO SCH (08:13)
[2019-01-22] MEDS: Amlodipine 5 MG TAB PO SCH (08:13)
[2019-01-22] MEDS: Aspirin Chewable 81 MG TAB PO SCH (08:13)
[2019-01-22] MEDS: Tamsulosin HCl 0.4 MG CAP PO SCH (08:13)
[2019-01-22] MEDS: Enoxaparin Sodium 80 MG/0.8 ML SYRINGE SC SCH ×2 (08:13→22:03)
[2019-01-22] MEDS: Famotidine 20 MG TAB PO SCH ×2 (08:15→22:12)
--- NOTE | 2019-01-22 11:50 | CT ---
CT PULMONARY ANGIOGRAM WITH IV CONTRAST AND 3D POSTPROCESSING: Date: 01/22/19 HISTORY: Cough. FINDINGS: There is good contrast opacification of the pulmonary arterial vasculature without filling defects to suggest pulmonary embolism. There are vascular calcifications without aneurysmal dilatation of the t horacic aorta. No pleural or pericardial effusions are seen. There are dependent changes in the lung bases. Mild infiltrates versus atelectatic changes were also seen in the lingula. Upper abdominal diann ograms demonstrate cholelithiasis and liver cysts. There are degenerative changes in the spine. IMPRESSION: No CT evidence of pulmonary embolism. POS: OFF
--- NOTE | 2019-01-22 12:57 | PDOC.PN ---
- Subjective Encounter Start Date: 01/22/19 Encounter Start Time: 12:55 Patient seen and examined, no new issues or complaints, states he's having a lot of coughing but otherwise no issues. All questions answered, no family at bedside. - Objective Resuscitation Status - Order Detail: 01/20/19 18:11 Resuscitation Status Routine Resuscitation Status: FULL: Full Resuscitation Discussed with: Patient Vital Signs & Weight: Vital Signs (12 hours) Temp Pulse Resp BP Pulse Ox 01/22/19 12:48 62 16 92 L 01/22/19 11:00 98 F 72 18 156/75 H 93 L 01/22/19 08:13 84 01/22/19 08:10 92 L 01/22/19 08:08 98.5 F 84 16 154/73 H 92 L 01/22/19 07:37 93 L 01/22/19 07:35 73 16 93 L 01/22/19 05:00 98.5 F 83 22 H 162/75 H 92 L Weight Admit Weight 167 lb 1.6 oz Weight 164 lb 11.2 oz I&O: 01/21/19 01/22/19 01/23/19 06:59 06:59 06:59 Intake Total 220 450 Output Total 350 280 Balance -130 170 Result Diagrams: 01/21/19 05:39 01/21/19 05:39 Additional Labs: Accuchecks 01/22/19 01/22/19 01/21/19 11:02 05:02 20:49 POC Glucose 131 H 143 H 142 H 01/21/19 01/21/19 18:34 14:41 POC Glucose 134 H 137 H Phys Exam - Physical Examination Constitutional: NAD HEENT: PERRLA, moist MMs, sclera anicteric Neck: no nodes, no JVD, supple Respiratory: no wheezing, no rales, no rhonchi Cardiovascular: RRR, no rub 2/6 DONNY Gastrointestinal: soft, non-tender, no distention, positive bowel sounds Musculoskeletal: pulses present, edema present (trace) Dx/Plan (1) Acute on chronic systolic heart failure Code(s): I50.23 - ACUTE ON CHRONIC SYSTOLIC (CONGESTIVE) HEART FAILURE Status : Acute Comment: last echo lvef 30-35& (2) Acute respiratory failure with hypoxia Code(s): J96.01 - ACUTE RESPIRATORY FAILURE WITH HYPOXIA Status: Acute (3) Cardiomyopathy Code(s): I42.9 - CARDIOMYOPATHY, UNSPECIFIED Status: Chronic Qualifiers: Cardiomyopathy type: unspecified Qualified Code(s): I42.9 - Cardiomyopathy , unspecified (4) CAD (coronary artery disease) Code(s): I25.10 - ATHSCL HEART DISEASE OF [place] CORONARY ARTERY W/O ANG PCTRS Status: Chronic Qualifiers: Coronary Disease-Associated Artery/Lesion type: [place] artery [place] vs. transplanted heart: [place] heart Associated angina: without angina Qualified Code(s): I25.10 - Atherosclerotic heart disease of [place] coronary artery without angina pectoris (5) Diabetes mellitus Code(s): E11.9 - TYPE 2 DIABETES MELLITUS WITHOUT COMPLICATIONS Status: Chronic Qualifiers: Diabetes mellitus type: type 2 Diabetes mellitus attenuator insulin use: without attenuator use Diabetes mellitus complication status: without complication Qualified Code(s): E11.9 - Type 2 diabetes mellitus without complications (6) Dyslipidemia Code(s): E78.5 - HYPERLIPIDEMIA, UNSPECIFIED Status: Chronic - Plan * CTA shows no PE * mental status improving, able to converse but remains confused * labs improving, will repeat in aM * will also obtain CXR in AM and start antitussive medications, possible viral syndrome? * PCO2 was elevated on ABG yesterday, possibly acute hypercarbic respiratory failure which could also cause AMS? * cont oxygen and duonebs for now * Echo shows good EF but does some cardiac disease with a dilated left atrium and some valvulopathy * BP stable * cardio following * continue current plan of care for now, patient improving but not stable for discharge * no family at bedside
[2019-01-22] MEDS: Lorazepam 2 MG/ML VIAL SLOW IVP PRN (15:27)
[2019-01-22] MEDS ORDERED: Haloperidol Lactate 5 MG/ML VIAL ONE (15:48)
[2019-01-22] MEDS ORDERED: Lorazepam 2 MG/ML VIAL SLOW IVP SCH (16:15)
[2019-01-22] MEDS: cefTRIAXone\\ROCEPHIN 1 GM in Sodium Chloride 0.9% 100 ML IVPB SCH (16:32)
[2019-01-22] MEDS: Azithromycin 500 MG in Sodium Chloride 0.9% 250 ML 250 ML IVPB SCH (18:01)
[2019-01-23] MEDS ORDERED: hydrALAZINE 20 MG/ML VIAL SLOW IVP PRN (00:58)
[2019-01-23] MEDS: Furosemide 20 MG/2 ML VIAL SLOW IVP SCH ×2 (05:40→15:08)
[2019-01-23] MEDS: methylPREDNISolone Sod Succ 40 MG VIAL IVP SCH ×2 (05:41→12:17)
[2019-01-23] MEDS: Amlodipine 5 MG TAB PO SCH (09:01)
[2019-01-23] MEDS: Carvedilol 25 MG TAB PO SCH ×2 (09:04→20:36)
[2019-01-23] MEDS: Clopidogrel Bisulfate 75 MG TAB PO SCH ×2 (09:04→16:55)
[2019-01-23] MEDS: Famotidine 20 MG TAB PO SCH ×2 (09:04→20:36)
[2019-01-23] MEDS: Tamsulosin HCl 0.4 MG CAP PO SCH (09:05)
[2019-01-23] MEDS: Atorvastatin Calcium 20 MG TAB PO SCH (09:05)
[2019-01-23] MEDS: Enoxaparin Sodium 80 MG/0.8 ML SYRINGE SC SCH (09:05)
[2019-01-23] MEDS: Aspirin Chewable 81 MG TAB PO SCH ×2 (09:05→16:56)
[2019-01-23] MEDS: Lorazepam 2 MG/ML VIAL SLOW IVP PRN (11:03)
--- NOTE | 2019-01-23 16:15 | PDOC.PN ---
- Subjective Encounter Start Date: 01/23/19 Encounter Start Time: 11:15 Mr. Mendoza was seen today in follow-up of acute respiratory failure. He is confused and has been combative as well. He is unable to offer any input to his medical concerns. He appears stable, and is laying flat in bed without any respiratory distress. - Objective Resuscitation Status - Order Detail: 01/20/19 18:11 Resuscitation Status Routine Resuscitation Status: FULL: Full Resuscitation Discussed with: Patient MAR Reviewed: Yes Vital Signs & Weight: Vital Signs (12 hours) Temp Pulse Resp BP Pulse Ox 01/23/19 14:03 88 18 92 L 01/23/19 12:17 98.5 F 74 18 166/79 H 94 L 01/23/19 08:00 93 L 01/23/19 07:56 97.5 F L 80 16 176/86 H 93 L 01/23/19 07:16 102 H 22 H 92 L Weight Admit Weight 167 lb 1.6 oz Weight 161 lb 14.4 oz I&O: 01/22/19 01/23/19 01/24/19 06:59 06:59 07:59 Intake Total 450 680 Output Total 280 656 Balance 170 24 Result Diagrams: 01/21/19 05:39 01/21/19 05:39 Additional Labs: Accuchecks 01/23/19 01/23/19 01/22/19 11:55 06:09 20:19 POC Glucose 135 H 146 H 134 H 01/22/19 16:39 POC Glucose 149 H Phys Exam - Physical Examination HEENT: PERRLA Respiratory: no rales, no rhonchi + occassional wheeze Cardiovascular: no significant murmur Gastrointestinal: soft, non-tender, positive bowel sounds Musculoskeletal: no edema, pulses present Dx/Plan (1) Acute respiratory distress Code(s): R06.03 - ACUTE RESPIRATORY DISTRESS Status: Acute (2) CAD (coronary artery disease) Code(s): I25.10 - ATHSCL HEART DISEASE OF [place] CORONARY ARTERY W/O ANG PCTRS Status: Chronic Qualifiers: Coronary Disease-Associated Artery/Lesion type: [place] artery [place] vs. transplanted heart: [place] heart Associated angina: without angina Qualified Code(s): I25.10 - Atherosclerotic heart disease of [place] coronary artery without angina pectoris (3) Diabetes mellitus Code(s): E11.9 - TYPE 2 DIABETES MELLITUS WITHOUT COMPLICATIONS Status: Chronic Qualifiers: Diabetes mellitus type: type 2 Diabetes mellitus fci insulin use: without fci use Diabetes mellitus complication status: without complication Qualified Code(s): E11.9 - Type 2 diabetes mellitus without complications (4) Chronic diastolic heart failure Code(s): I50.32 - CHRONIC DIASTOLIC (CONGESTIVE) HEART FAILURE Status: Chronic (5) Hypertension Code(s): I10 - ESSENTIAL (PRIMARY) HYPERTENSION Status: Chronic (6) Delirium Code(s): R41.0 - DISORIENTATION, UNSPECIFIED Status: Acute - Plan * Acute respiratory failure- likely from COPD exacerbation- continue IV antibiotics, duonebs and Steroids * Chronic diastolic heart failure- compensated * CTA- was negative for PE- will discontinue Lovenox * DM- blood glucose is stable * HTN- blood pressure has been a bit labile- will continue Olmesartan and Amlodipine and prn Hydralazine * Delirium- he may have some baseline dementia- along with the current illness- will cut back on the steroid dose, and add a low dose of Seroquel at night.
[2019-01-23] MEDS: cefTRIAXone\\ROCEPHIN 1 GM in Sodium Chloride 0.9% 100 ML IVPB SCH (16:51)
--- NOTE | 2019-01-23 17:04 | PDOC.CTH ---
Cardiology Progress Note - Subjective Confused. Combative today per staff. - Objective Vital Signs Temp Pulse Resp BP Pulse Ox 01/23/19 14:03 88 18 92 L 01/23/19 12:17 98.5 F 74 18 166/79 H 94 L 01/23/19 08:00 93 L 01/23/19 07:56 97.5 F L 80 16 176/86 H 93 L 01/23/19 07:16 102 H 22 H 92 L Admit Weight 167 lb 1.6 oz Weight 161 lb 14.4 oz 01/22/19 01/23/19 01/24/19 06:59 06:59 07:59 Intake Total 450 680 Output Total 280 656 Balance 170 24 - Physical Examination General/Neuro: other: (alert and awake) Neck: no JVD present Heart: RRR Abdomen: NT/ND - Telemetry Telemetry Rhythm: SR - Labs Result Diagrams: 01/21/19 05:39 01/21/19 05:39 Troponin/CKMB Troponin I 0.012 ng/mL (< 0.028) 01/21/19 05:39 - Assessment/Plan 1. Acute respiratory failure 2. Delirium 3. CAD s/p CABG 4. ICMO 5. HTN BP meds already adjusted by primary team. No changes from my standpoint.
[2019-01-23] MEDS: Azithromycin 500 MG in Sodium Chloride 0.9% 250 ML 250 ML IVPB SCH (17:36)
[2019-01-24] MEDS: Lorazepam 2 MG/ML VIAL SLOW IVP PRN ×2 (00:34→19:32)
[2019-01-24] MEDS: Furosemide 20 MG/2 ML VIAL SLOW IVP SCH ×2 (05:42→14:35)
[2019-01-24] MEDS: Clopidogrel Bisulfate 75 MG TAB PO SCH (08:37)
[2019-01-24] MEDS: Famotidine 20 MG TAB PO SCH ×2 (08:37→20:25)
[2019-01-24] MEDS: Aspirin Chewable 81 MG TAB PO SCH (08:38)
[2019-01-24] MEDS: predniSONE 20 MG TAB PO SCH (08:38)
[2019-01-24] MEDS: Tamsulosin HCl 0.4 MG CAP PO SCH (08:38)
[2019-01-24] MEDS: Carvedilol 25 MG TAB PO SCH ×2 (08:38→20:43)
[2019-01-24] MEDS: Amlodipine 5 MG TAB PO SCH (08:38)
[2019-01-24] MEDS: Atorvastatin Calcium 20 MG TAB PO SCH (08:38)
--- NOTE | 2019-01-24 10:18 | PDOC.CTH ---
Cardiology Progress Note - Subjective Patient still with intermittent confusion per nursing staff. Refusing tele monitor. - Objective Vital Signs Temp Pulse Resp BP BP Pulse Ox 01/24/19 07:41 97.8 F 78 16 169/75 H 92 L 01/24/19 07:25 88 20 91 L 01/24/19 04:13 98.0 F 99 22 H 146/83 H 94 L 01/24/19 01:06 74 22 H 93 L 01/24/19 00:11 75 185/80 H 01/24/19 00:00 75 22 H 185/80 H 99 Admit Weight 167 lb 1.6 oz Weight 161 lb 4.8 oz 01/23/19 01/24/19 01/25/19 05:59 06:59 06:59 Intake Total Output Total Balance - Physical Examination General/Neuro: other: (alert and awake) Neck: no JVD present Lungs: CTA Heart: RRR - Telemetry Telemetry Rhythm: SR - Labs Result Diagrams: 01/21/19 05:39 01/21/19 05:39 Troponin/CKMB Troponin I 0.012 ng/mL (< 0.028) 01/21/19 05:39 - Assessment/Plan 1. Acute respiratory failure 2. Delirium 3. CAD s/p CABG 4. ICMO 5. HTN Patient noncompliant with tele. Ok to transfer to medical. Is taking po meds. BP elevated, but meds adjusted by primary team. Will continue to follow PRN.
--- NOTE | 2019-01-24 12:36 | PDOC.PN ---
- Subjective Encounter Start Date: 01/24/19 Encounter Start Time: 12:34 Mr. Mendoza was seen today in follow-up of acute respiratory failure and delirium. He appears some alert today. He is no longer in restraints. He knows he is in the " [place] area" when asked where he is. He did not recognize it to be a hospital. He was not sure of the year or month. He does says that he is sick, and doesn't feel so good. - Objective Resuscitation Status - Order Detail: 01/20/19 18:11 Resuscitation Status Routine Resuscitation Status: FULL: Full Resuscitation Discussed with: Patient MAR Reviewed: Yes Vital Signs & Weight: Vital Signs (12 hours) Temp Pulse Resp BP BP Pulse Ox 01/24/19 11:41 98.5 F 70 20 136/79 96 01/24/19 08:38 92 L 01/24/19 07:41 97.8 F 78 16 169/75 H 92 L 01/24/19 07:25 88 20 91 L 01/24/19 04:13 98.0 F 99 22 H 146/83 H 94 L 01/24/19 01:06 74 22 H 93 L 01/24/19 00:11 75 185/80 H 01/24/19 00:00 75 22 H 185/80 H 99 Weight Admit Weight 167 lb 1.6 oz Weight 161 lb 4.8 oz I&O: 01/23/19 01/24/19 01/25/19 05:59 06:59 06:59 Intake Total Output Total Balance Result Diagrams: 01/21/19 05:39 01/21/19 05:39 Additional Labs: Accuchecks 01/24/19 01/24/19 01/23/19 11:24 05:48 20:09 POC Glucose 131 H 133 H 138 H 01/23/19 11:55 POC Glucose 135 H Phys Exam - Physical Examination HEENT: PERRLA Respiratory: no wheezing, no rales, no rhonchi, clear to auscultation bilateral + coarse breath sounds at the bases Cardiovascular: RRR, no significant murmur, no rub Gastrointestinal: soft, non-tender, no distention, positive bowel sounds Musculoskeletal: pulses present, edema present trace pedal edema Dx/Plan (1) Acute respiratory distress Code(s): R06.03 - ACUTE RESPIRATORY DISTRESS Status: Acute (2) CAD (coronary artery disease) Code(s): I25.10 - ATHSCL HEART DISEASE OF [place] CORONARY ARTERY W/O ANG PCTRS Status: Chronic Qualifiers: Coronary Disease-Associated Artery/Lesion type: [place] artery [place] vs. transplanted heart: [place] heart Associated angina: without angina Qualified Code(s): I25.10 - Atherosclerotic heart disease of [place] coronary artery without angina pectoris (3) Diabetes mellitus Code(s): E11.9 - TYPE 2 DIABETES MELLITUS WITHOUT COMPLICATIONS Status: Chronic Qualifiers: Diabetes mellitus type: type 2 Diabetes mellitus depalletizer operator insulin use: without depalletizer operator use Diabetes mellitus complication status: without complication Qualified Code(s): E11.9 - Type 2 diabetes mellitus without complications (4) Chronic diastolic heart failure Code(s): I50.32 - CHRONIC DIASTOLIC (CONGESTIVE) HEART FAILURE Status: Chronic (5) Hypertension Code(s): I10 - ESSENTIAL (PRIMARY) HYPERTENSION Status: Chronic (6) Delirium Code(s): R41.0 - DISORIENTATION, UNSPECIFIED Status: Acute - Plan * Acute respiratory failure- likely from CHF exacerbation and COPD- improved * Acute on chronic diastolic heart failure- continue Lasix IV * COPD- continue IV antibiotics, and duonebs, and Prednisone * HTN- blood pressure is stable * DM- blood glucose is stable. * Delirium- improving * OK to move off telemetry
[2019-01-24] MEDS: cefTRIAXone\\ROCEPHIN 1 GM in Sodium Chloride 0.9% 100 ML IVPB SCH (17:58)
[2019-01-24] MEDS: Azithromycin 500 MG in Sodium Chloride 0.9% 250 ML 250 ML IVPB SCH (20:25)
[2019-01-24] MEDS: Acetaminophen 325 MG TAB PO PRN (20:43)
[2019-01-25] MEDS: Lorazepam 2 MG/ML VIAL SLOW IVP PRN ×3 (01:25→13:58)
[2019-01-25] MEDS: Furosemide 20 MG/2 ML VIAL SLOW IVP SCH ×2 (06:24→13:12)
[2019-01-25] MEDS: Tamsulosin HCl 0.4 MG CAP PO SCH (07:27)
[2019-01-25] MEDS: Clopidogrel Bisulfate 75 MG TAB PO SCH (07:27)
[2019-01-25] MEDS: Atorvastatin Calcium 20 MG TAB PO SCH (07:27)
[2019-01-25] MEDS: Aspirin Chewable 81 MG TAB PO SCH (07:28)
[2019-01-25] MEDS: Carvedilol 25 MG TAB PO SCH ×2 (07:28→19:50)
[2019-01-25] MEDS: predniSONE 20 MG TAB PO SCH (07:28)
[2019-01-25] MEDS: Famotidine 20 MG TAB PO SCH ×2 (07:28→19:50)
[2019-01-25] MEDS: Amlodipine 5 MG TAB PO SCH (07:28)
--- NOTE | 2019-01-25 15:41 | PDOC.PN ---
- Subjective Encounter Start Date: 01/25/19 Encounter Start Time: 15:39 Mr. Mendoza was seen today in follow-up. He still has intermittent confusion, and hypoxemia when he removes the oxygen. - Objective Resuscitation Status - Order Detail: 01/20/19 18:11 Resuscitation Status Routine Resuscitation Status: FULL: Full Resuscitation Discussed with: Patient MAR Reviewed: Yes Vital Signs & Weight: Vital Signs (12 hours) Temp Pulse Resp BP Pulse Ox 01/25/19 13:24 97.8 F 54 L 20 134/75 91 L 01/25/19 12:51 98.9 F 113 H 20 95/63 98 01/25/19 11:56 80 16 95 01/25/19 08:08 82 16 94 L 01/25/19 08:02 97.8 F 82 20 151/79 H 94 L 01/25/19 07:28 64 01/25/19 04:00 98.0 F 64 16 174/78 H Weight Admit Weight 167 lb 1.6 oz Weight 166 lb 4.8 oz I&O: 01/24/19 01/25/19 01/26/19 06:59 06:59 06:59 Intake Total 1540 Output Total Balance 1540 Result Diagrams: 01/21/19 05:39 01/21/19 05:39 Additional Labs: Accuchecks 01/25/19 01/25/19 01/24/19 12:32 04:42 20:55 POC Glucose 119 H 112 H 120 H 01/24/19 16:41 POC Glucose 143 H Phys Exam - Physical Examination HEENT: PERRLA Respiratory: no wheezing, no rhonchi + faint rales, Cardiovascular: RRR, no significant murmur, no rub Gastrointestinal: soft, non-tender, no distention, positive bowel sounds Musculoskeletal: no edema, pulses present Dx/Plan (1) Acute respiratory distress Code(s): R06.03 - ACUTE RESPIRATORY DISTRESS Status: Acute (2) CAD (coronary artery disease) Code(s): I25.10 - ATHSCL HEART DISEASE OF [place] CORONARY ARTERY W/O ANG PCTRS Status: Chronic Qualifiers: Coronary Disease-Associated Artery/Lesion type: [place] artery [place] vs. transplanted heart: [place] heart Associated angina: without angina Qualified Code(s): I25.10 - Atherosclerotic heart disease of [place] coronary artery without angina pectoris (3) Diabetes mellitus Code(s): E11.9 - TYPE 2 DIABETES MELLITUS WITHOUT COMPLICATIONS Status: Chronic Qualifiers: Diabetes mellitus type: type 2 Diabetes mellitus nursing home insulin use: without terminal operations manager use Diabetes mellitus complication status: without complication Qualified Code(s): E11.9 - Type 2 diabetes mellitus without complications (4) Chronic diastolic heart failure Code(s): I50.32 - CHRONIC DIASTOLIC (CONGESTIVE) HEART FAILURE Status: Chronic (5) Hypertension Code(s): I10 - ESSENTIAL (PRIMARY) HYPERTENSION Status: Chronic (6) Delirium Code(s): R41.0 - DISORIENTATION, UNSPECIFIED Status: Acute - Plan * Acute respiratory failure- likely from volume overload- will change him to oral Lasix * Acute bronchitis- improving * Ddelirium- ? early dementia- will need to discuss with family regarding his baseline condition. Will begin to chente antibiotics, and steroids, and see if this results in any improvement * HTN- blood pressure is trending down * .
[2019-01-25] MEDS ORDERED: Lorazepam 2 MG/ML VIAL SLOW IVP PRN (16:02)
[2019-01-25] MEDS: Mometasone/Formoterol 120 PUFF INHALER INH SCH (18:11)
[2019-01-25] MEDS: Cefdinir 300 MG CAP PO SCH (19:50)
--- NOTE | 2019-01-25 21:21 | RAD ---
PORTABLE CHEST: Comparison: 01-20-19 FINDINGS: Heart size is borderline. There are post op sternotomy changes with an internal defibrillator device present. The lungs are clear of any infiltrative process. There is some minimal linear interstitial c hange in the region of the lingula. IMPRESSION: 1. Borderline heart size. 2. No confluent infiltrate. Minimally increased parenchymal changes within the lingula could represen t atelectasis. I cannot exclude this as early infiltrative change. POS: [facility]
--- NOTE | 2019-01-25 23:17 | CT ---
NONCONTRAST CT HEAD: Date: 01-25-19 History: Altered mental status. Patient is combative and moving. FINDINGS: Comparison is made with study on 09-10-18. Again noted are chronic small vessel ischemic changes and cerebral volume loss not significantly prog ressed when compared to the prior exam. No acute cortical infarction or hemorrhage is appreciated. There is a cavum septum ad vergae which is a normal variant. There is no evidence of hydrocephalus. Vascular calcifications are again seen in the carotid siphons and in the vertebral basilar arteries. There has been no interval changed compared to the prior exam. IMPRESSION: 1. No acute intracranial abnormality is demonstrated. 2. Stable chronic changes. POS: [facility]
[2019-01-26] MEDS: Mometasone/Formoterol 120 PUFF INHALER INH SCH ×2 (06:11→18:50)
[2019-01-26] MEDS: Carvedilol 25 MG TAB PO SCH ×2 (08:02→20:14)
[2019-01-26] MEDS: Cefdinir 300 MG CAP PO SCH ×2 (08:02→20:14)
[2019-01-26] MEDS: Aspirin Chewable 81 MG TAB PO SCH (08:02)
[2019-01-26] MEDS: Clopidogrel Bisulfate 75 MG TAB PO SCH (08:02)
[2019-01-26] MEDS: Tamsulosin HCl 0.4 MG CAP PO SCH (08:02)
[2019-01-26] MEDS: Furosemide 20 MG TAB PO SCH (08:02)
[2019-01-26] MEDS: Atorvastatin Calcium 20 MG TAB PO SCH (08:02)
[2019-01-26] MEDS: Amlodipine 5 MG TAB PO SCH (08:02)
[2019-01-26] MEDS: Famotidine 20 MG TAB PO SCH ×2 (09:43→20:14)
--- NOTE | 2019-01-26 11:47 | PDOC.PN ---
- Subjective Encounter Start Date: 01/26/19 Encounter Start Time: 11:38 Mr. Mendoza was seen today in follow-up of respiratory failure. He is still confused but less agitated. He does not have any new complaints. - Objective Resuscitation Status - Order Detail: 01/20/19 18:11 Resuscitation Status Routine Resuscitation Status: FULL: Full Resuscitation Discussed with: Patient MAR Reviewed: Yes Vital Signs & Weight: Vital Signs (12 hours) Temp Pulse Resp BP Pulse Ox 01/26/19 11:30 59 L 16 96 01/26/19 08:02 86 01/26/19 08:00 97 01/26/19 07:37 97.5 F L 86 22 H 127/76 93 L 01/26/19 06:11 79 16 96 01/26/19 06:07 79 16 96 01/26/19 03:55 97.6 F 84 22 H 141/75 H 94 L 01/26/19 00:44 82 16 96 01/26/19 00:31 97.9 F 87 24 H 124/76 95 Weight Admit Weight 167 lb 1.6 oz Weight 161 lb 12.8 oz I&O: 01/25/19 01/26/19 01/27/19 06:59 06:59 06:59 Intake Total 1540 402 240 Output Total 300 Balance 1540 102 240 Result Diagrams: 01/21/19 05:39 01/21/19 05:39 Additional Labs: Accuchecks 01/26/19 01/25/19 01/25/19 04:06 21:27 16:52 POC Glucose 119 H 125 H 140 H 01/25/19 12:32 POC Glucose 119 H Phys Exam - Physical Examination HEENT: PERRLA Respiratory: no wheezing, no rales, no rhonchi, clear to auscultation bilateral Cardiovascular: RRR, no significant murmur, no rub Gastrointestinal: soft, non-tender, no distention, positive bowel sounds Musculoskeletal: no edema, pulses present Dx/Plan (1) Acute respiratory distress Code(s): R06.03 - ACUTE RESPIRATORY DISTRESS Status: Acute (2) CAD (coronary artery disease) Code(s): I25.10 - ATHSCL HEART DISEASE OF [place] CORONARY ARTERY W/O ANG PCTRS Status: Chronic Qualifiers: Coronary Disease-Associated Artery/Lesion type: [place] artery [place] vs. transplanted heart: [place] heart Associated angina: without angina Qualified Code(s): I25.10 - Atherosclerotic heart disease of [place] coronary artery without angina pectoris (3) Diabetes mellitus Code(s): E11.9 - TYPE 2 DIABETES MELLITUS WITHOUT COMPLICATIONS Status: Chronic Qualifiers: Diabetes mellitus type: type 2 Diabetes mellitus manager intermediate insulin use: without half-way use Diabetes mellitus complication status: without complication Qualified Code(s): E11.9 - Type 2 diabetes mellitus without complications (4) Chronic diastolic heart failure Code(s): I50.32 - CHRONIC DIASTOLIC (CONGESTIVE) HEART FAILURE Status: Chronic (5) Hypertension Code(s): I10 - ESSENTIAL (PRIMARY) HYPERTENSION Status: Chronic (6) Delirium Code(s): R41.0 - DISORIENTATION, UNSPECIFIED Status: Acute - Plan * Acute respiratory failure due to acute on chronic diastolic heart failure- better compensated * COPD- stable * DM- blood pressure is stable * HTN- blood pressure is stable * Delirium- discussed with the patient's son, and girlfriend. They tell me he is not at his baseline. However his girlfrien says that he has declined some every since he had a stroke back in August. 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 She says he declined even further after that. He has had an episode of agitiation after surgery before, but this is his worst episode. He fell about a month ago, and I ordered a CT scan to rule out subdural or new CVA- and this was negative. His chest X-ray does not demonstrate significant volume overload. I suspect his delirium is related to possible early dementia, and being in a new environment. She tells me she and his brother had already began to make plans to look for a retirement for him * Will avoid sedating medications when possible * Discussed with Case Management- will place a referral for [facility].
[2019-01-26] MEDS: Acetaminophen 325 MG TAB PO PRN (20:14)
[2019-01-27] MEDS: Mometasone/Formoterol 120 PUFF INHALER INH SCH ×2 (05:55→20:24)
[2019-01-27] MEDS: Carvedilol 25 MG TAB PO SCH ×2 (07:56→19:59)
[2019-01-27] MEDS: Aspirin Chewable 81 MG TAB PO SCH (07:56)
[2019-01-27] MEDS: Tamsulosin HCl 0.4 MG CAP PO SCH (07:56)
[2019-01-27] MEDS: Atorvastatin Calcium 20 MG TAB PO SCH (07:56)
[2019-01-27] MEDS: Cefdinir 300 MG CAP PO SCH ×2 (07:56→19:59)
[2019-01-27] MEDS: Clopidogrel Bisulfate 75 MG TAB PO SCH (07:57)
[2019-01-27] MEDS: Famotidine 20 MG TAB PO SCH ×2 (07:57→19:58)
[2019-01-27] MEDS: Furosemide 20 MG TAB PO SCH (07:57)
[2019-01-27] MEDS: Amlodipine 5 MG TAB PO SCH (07:57)
--- NOTE | 2019-01-27 09:27 | PDOC.PN ---
- Subjective Encounter Start Date: 01/27/19 Encounter Start Time: 11:50 Subjective: Patient with no events overnight. Still a little disoriented, but not -: agitated. May be near baseline. No complaints. - Objective Resuscitation Status - Order Detail: 01/20/19 18:11 Resuscitation Status Routine Resuscitation Status: FULL: Full Resuscitation Discussed with: Coreen JUAREZ Reviewed: Yes Vital Signs & Weight: Vital Signs (12 hours) Temp Pulse Resp BP Pulse Ox 01/27/19 08:00 97.2 F L 77 17 92/59 L 93 L 01/27/19 07:57 73 01/27/19 05:52 73 20 91 L 01/27/19 00:05 59 L 14 98 Weight Admit Weight 167 lb 1.6 oz Weight 161 lb 8 oz I&O: 01/26/19 01/27/19 01/28/19 06:59 06:59 06:59 Intake Total 402 720 Output Total 300 Balance 102 720 Result Diagrams: 01/21/19 05:39 01/21/19 05:39 Additional Labs: Accuchecks 01/27/19 01/26/19 01/26/19 04:40 19:53 15:41 POC Glucose 98 105 120 H 01/26/19 10:41 POC Glucose 135 H Phys Exam - Physical Examination Constitutional: NAD HEENT: moist MMs Respiratory: no wheezing, no rales, no rhonchi on 3L NC, but pushed it up on his forehead Cardiovascular: RRR, no significant murmur Gastrointestinal: soft, positive bowel sounds Neurological: non-focal Psychiatric: normal affect Deviation from normal: oriented to person, knows in hospital but doesn't know town, thinks it is 2010 Dx/Plan (1) Acute on chronic diastolic (congestive) heart failure Code(s): I50.33 - ACUTE ON CHRONIC DIASTOLIC (CONGESTIVE) HEART FAILURE Status : Acute (2) Acute respiratory failure with hypoxia Code(s): J96.01 - ACUTE RESPIRATORY FAILURE WITH HYPOXIA Status: Acute Comment: sating well on 3L NC (3) Acute metabolic encephalopathy Code(s): G93.41 - METABOLIC ENCEPHALOPATHY Status: Acute Comment: due to respiratory failure on top of underlying vascular dementia (4) Dementia Code(s): F03.90 - UNSPECIFIED DEMENTIA WITHOUT BEHAVIORAL DISTURBANCE Status: Chronic Comment: worse ever since stroke last year, likely vascular component (5) Hypertension Code(s): I10 - ESSENTIAL (PRIMARY) HYPERTENSION Status: Chronic Qualifiers: Hypertension type: essential hypertension Qualified Code(s): I10 - Essential (primary) hypertension (6) CAD (coronary artery disease) Code(s): I25.10 - ATHSCL HEART DISEASE OF [place] CORONARY ARTERY W/O ANG PCTRS Status: Chronic Qualifiers: Coronary Disease-Associated Artery/Lesion type: [place] artery [place] vs. transplanted heart: [place] heart Associated angina: without angina Qualified Code(s): I25.10 - Atherosclerotic heart disease of [place] coronary artery without angina pectoris (7) Diabetes mellitus Code(s): E11.9 - TYPE 2 DIABETES MELLITUS WITHOUT COMPLICATIONS Status: Chronic Qualifiers: Diabetes mellitus type: type 2 Diabetes mellitus marine oil terminal superintendent insulin use: without marine oil terminal superintendent use Diabetes mellitus complication status: without complication Qualified Code(s): E11.9 - Type 2 diabetes mellitus without complications (8) Dyslipidemia Code(s): E78.5 - HYPERLIPIDEMIA, UNSPECIFIED Status: Chronic - Plan cont current plan of care, PT/OT, DVT proph w/SCDs SNF placement * . - Discharge Day Encounter end time: 12:00
[2019-01-28] MEDS: Mometasone/Formoterol 120 PUFF INHALER INH SCH (05:46)
[2019-01-28] MEDS: Clopidogrel Bisulfate 75 MG TAB PO SCH (08:29)
[2019-01-28] MEDS: Famotidine 20 MG TAB PO SCH ×2 (08:29→19:49)
[2019-01-28] MEDS: Tamsulosin HCl 0.4 MG CAP PO SCH (08:29)
[2019-01-28] MEDS: Amlodipine 5 MG TAB PO SCH (08:29)
[2019-01-28] MEDS: Carvedilol 25 MG TAB PO SCH ×2 (08:29→19:50)
[2019-01-28] MEDS: Furosemide 20 MG TAB PO SCH (08:29)
[2019-01-28] MEDS: Aspirin Chewable 81 MG TAB PO SCH (08:29)
[2019-01-28] MEDS: Cefdinir 300 MG CAP PO SCH ×2 (08:29→19:49)
[2019-01-28] MEDS: Atorvastatin Calcium 20 MG TAB PO SCH (08:29)
--- NOTE | 2019-01-28 09:11 | PDOC.PN ---
- Subjective Encounter Start Date: 01/28/19 Encounter Start Time: 12:00 Subjective: No events overnight. Patient denies complaints this AM. - Objective Resuscitation Status - Order Detail: 01/20/19 18:11 Resuscitation Status Routine Resuscitation Status: FULL: Full Resuscitation Discussed with: Coreen JUAREZ Reviewed: Yes Vital Signs & Weight: Vital Signs (12 hours) Temp Pulse Resp BP Pulse Ox 01/28/19 08:29 61 01/28/19 07:20 97.9 F 61 18 143/75 H 91 L 01/28/19 05:38 72 16 92 L 01/28/19 02:50 93 L 01/28/19 00:18 72 92 L Weight Admit Weight 167 lb 1.6 oz Weight 163 lb 11.162 oz I&O: 01/27/19 01/28/19 01/29/19 06:59 06:59 06:59 Intake Total 720 490 Balance 720 490 Result Diagrams: 01/21/19 05:39 01/21/19 05:39 Additional Labs: Accuchecks 01/28/19 01/27/19 01/27/19 05:03 20:48 16:37 POC Glucose 114 H 110 112 H 01/27/19 11:49 POC Glucose 113 H Phys Exam - Physical Examination Constitutional: NAD HEENT: moist MMs took O2 off himself earlier, sating 91% on RA Respiratory: no wheezing, no rales, no rhonchi Cardiovascular: RRR Gastrointestinal: soft, positive bowel sounds Musculoskeletal: no edema Neurological: non-focal Psychiatric: normal affect Dx/Plan (1) Acute on chronic diastolic (congestive) heart failure Code(s): I50.33 - ACUTE ON CHRONIC DIASTOLIC (CONGESTIVE) HEART FAILURE Status : Acute (2) Acute respiratory failure with hypoxia Code(s): J96.01 - ACUTE RESPIRATORY FAILURE WITH HYPOXIA Status: Acute Comment: sating well on 3L NC (3) Acute metabolic encephalopathy Code(s): G93.41 - METABOLIC ENCEPHALOPATHY Status: Acute Comment: due to respiratory failure on top of underlying vascular dementia (4) Dementia Code(s): F03.90 - UNSPECIFIED DEMENTIA WITHOUT BEHAVIORAL DISTURBANCE Status: Chronic Comment: worse ever since stroke last year, likely vascular component (5) Hypertension Code(s): I10 - ESSENTIAL (PRIMARY) HYPERTENSION Status: Chronic Qualifiers: Hypertension type: essential hypertension Qualified Code(s): I10 - Essential (primary) hypertension (6) CAD (coronary artery disease) Code(s): I25.10 - ATHSCL HEART DISEASE OF [place] CORONARY ARTERY W/O ANG PCTRS Status: Chronic Qualifiers: Coronary Disease-Associated Artery/Lesion type: [place] artery [place] vs. transplanted heart: [place] heart Associated angina: without angina Qualified Code(s): I25.10 - Atherosclerotic heart disease of [place] coronary artery without angina pectoris (7) Diabetes mellitus Code(s): E11.9 - TYPE 2 DIABETES MELLITUS WITHOUT COMPLICATIONS Status: Chronic Qualifiers: Diabetes mellitus type: type 2 Diabetes mellitus superintendent marine oil terminal insulin use: without custodial use Diabetes mellitus complication status: without complication Qualified Code(s): E11.9 - Type 2 diabetes mellitus without complications (8) Dyslipidemia Code(s): E78.5 - HYPERLIPIDEMIA, UNSPECIFIED Status: Chronic - Plan cont current plan of care, PT/OT, DVT proph w/SCDs SNF placement * . - Discharge Day Encounter end time: 12:10
[2019-01-29] MEDS: Carvedilol 25 MG TAB PO SCH ×2 (09:22→19:51)
[2019-01-29] MEDS: Amlodipine 5 MG TAB PO SCH (09:22)
[2019-01-29] MEDS: Aspirin Chewable 81 MG TAB PO SCH (09:22)
[2019-01-29] MEDS: Atorvastatin Calcium 20 MG TAB PO SCH (09:22)
[2019-01-29] MEDS: Famotidine 20 MG TAB PO SCH ×2 (09:22→19:51)
[2019-01-29] MEDS: Clopidogrel Bisulfate 75 MG TAB PO SCH (09:22)
[2019-01-29] MEDS: Cefdinir 300 MG CAP PO SCH ×2 (09:23→19:51)
[2019-01-29] MEDS: Tamsulosin HCl 0.4 MG CAP PO SCH (09:23)
[2019-01-29] MEDS: Furosemide 20 MG TAB PO SCH (09:23)
--- NOTE | 2019-01-29 13:53 | PDOC.PN ---
- Subjective Encounter Start Date: 01/29/19 Encounter Start Time: 11:00 Subjective: awake, no sob -: feels weak - Objective Resuscitation Status - Order Detail: 01/20/19 18:11 Resuscitation Status Routine Resuscitation Status: FULL: Full Resuscitation Discussed with: Coreen JUAREZ Reviewed: Yes Vital Signs & Weight: Vital Signs (12 hours) Temp Pulse Resp BP BP Pulse Ox 01/29/19 11:41 97.8 F 59 L 20 139/71 91 L 01/29/19 09:22 57 L 136/60 01/29/19 08:00 97.6 F 57 L 18 136/60 90 L Weight Admit Weight 167 lb 1.6 oz Weight 162 lb 3 oz I&O: 01/28/19 01/29/19 01/30/19 06:59 06:59 06:59 Intake Total 490 600 Balance 490 600 Result Diagrams: 01/21/19 05:39 01/21/19 05:39 Additional Labs: Accuchecks 01/29/19 12:03 POC Glucose 104 Phys Exam - Physical Examination HEENT: PERRLA, moist MMs Neck: no JVD, supple Respiratory: no wheezing rhonchi+ Cardiovascular: RRR, no significant murmur Gastrointestinal: soft, non-tender, positive bowel sounds Musculoskeletal: pulses present Neurological: non-focal, moves all 4 limbs Dx/Plan (1) Acute on chronic diastolic (congestive) heart failure Code(s): I50.33 - ACUTE ON CHRONIC DIASTOLIC (CONGESTIVE) HEART FAILURE Status : Acute (2) Acute metabolic encephalopathy Code(s): G93.41 - METABOLIC ENCEPHALOPATHY Status: Acute Comment: due to respiratory failure on top of underlying vascular dementia (3) Acute respiratory failure with hypoxia Code(s): J96.01 - ACUTE RESPIRATORY FAILURE WITH HYPOXIA Status: Acute (4) Cardiomyopathy Code(s): I42.9 - CARDIOMYOPATHY, UNSPECIFIED Status: Chronic Qualifiers: Cardiomyopathy type: unspecified Qualified Code(s): I42.9 - Cardiomyopathy , unspecified (5) Dementia Code(s): F03.90 - UNSPECIFIED DEMENTIA WITHOUT BEHAVIORAL DISTURBANCE Status: Chronic Comment: worse ever since stroke last year, likely vascular component (6) Hypertension Code(s): I10 - ESSENTIAL (PRIMARY) HYPERTENSION Status: Chronic Qualifiers: Hypertension type: essential hypertension Qualified Code(s): I10 - Essential (primary) hypertension (7) CAD (coronary artery disease) Code(s): I25.10 - ATHSCL HEART DISEASE OF [place] CORONARY ARTERY W/O ANG PCTRS Status: Chronic Qualifiers: Coronary Disease-Associated Artery/Lesion type: bypass graft [place] vs. transplanted heart: [place] heart Associated angina: without angina Qualified Code(s): I25.810 - Atherosclerosis of coronary artery bypass graft(s) without angina pectoris (8) Diabetes mellitus Code(s): E11.9 - TYPE 2 DIABETES MELLITUS WITHOUT COMPLICATIONS Status: Chronic Qualifiers: Diabetes mellitus type: type 2 Diabetes mellitus intermodal customer service insulin use: without intermodal customer service use Diabetes mellitus complication status: without complication Qualified Code(s): E11.9 - Type 2 diabetes mellitus without complications (9) Dyslipidemia Code(s): E78.5 - HYPERLIPIDEMIA, UNSPECIFIED Status: Chronic - Plan repeat cxr, spo2 around 90% room air -: has deconditioning, eating less as well -: on norvasc, lasix, asp, lipitor, plavix, coreg, benicar -: nebs, omnicef, flomax and seroquel HS -: awaiting placement, encourage po intake * . Review of Systems - Medications/Allergies Allergies/Adverse Reactions: Allergies Allergy/AdvReac Type Severity Reaction Status Date / Time iodine Allergy Verified 10/07/17 12:01 Medications: Current Medications Acetaminophen (Tylenol) 650 mg PO Q4H PRN PRN Reason: Headache/Fever/Mild Pain (1-3) Last Admin: 01/26/19 20:14 Dose: 650 mg Acetaminophen (Tylenol) 650 mg [place] Q4H PRN PRN Reason: Headache/Fever/Mild Pain (1-3) Amlodipine Besylate (Norvasc) 5 mg PO DAILY [facility] Last Admin: 01/29/19 09:22 Dose: 5 mg Aspirin (Aspirin Chewable) 81 mg PO DAILY [facility] Last Admin: 01/29/19 09:22 Dose: 81 mg Atorvastatin Calcium (Lipitor) 20 mg PO DAILY [facility] Last Admin: 01/29/19 09:22 Dose: 20 mg Carvedilol (Coreg) 25 mg PO BID [facility] Last Admin: 01/29/19 09:22 Dose: 25 mg Cefdinir (Omnicef) 300 mg PO BID [facility] Last Admin: 01/29/19 09:23 Dose: 300 mg Clopidogrel Bisulfate (Plavix) 75 mg PO DAILY [facility] Last Admin: 01/29/19 09:22 Dose: 75 mg Dextrose/Water (Dextrose 50%) 25 gm SLOW IVP PRN PRN PRN Reason: Hypoglycemia Famotidine (Pepcid) 20 mg PO BID [facility] Last Admin: 01/29/19 09:22 Dose: 20 mg Furosemide (Lasix) 20 mg PO DAILY [facility] Last Admin: 01/29/19 09:23 Dose: 20 mg Glucagon (Glucagon) 1 mg IM PRN PRN PRN Reason: Hypoglycemia Guaifenesin/Dextromethorphan (Robitussin Dm) 15 ml PO Q4H PRN PRN Reason: Cough Hydralazine HCl (Apresoline) 10 mg SLOW IVP Q4H PRN PRN Reason: SBP Greater Than 170 Last Admin: 01/24/19 00:11 Dose: 10 mg Dextrose/Water (D5w) 1,000 mls @ 0 mls/hr IV .Q0M PRN PRN Reason: Hypoglycemia Insulin Human Lispro (Humalog) 0 units SC .MILD SLIDING SCALE PRN PRN Reason: Mild Correctional Scale Insulin Human Lispro (Humalog) 0 units SC .BEDTIME SLIDING SC PRN PRN Reason: Bedtime Correctional Scale Lorazepam (Ativan) 0.25 mg SLOW IVP Q6H PRN PRN Reason: Anxiety/Agitation Last Admin: 01/25/19 21:28 Dose: 0.25 mg Olmesartan (Benicar) 20 mg PO DAILY [facility] Last Admin: 01/29/19 09:22 Dose: 20 mg Ondansetron HCl (Zofran Odt) 4 mg PO Q6H PRN PRN Reason: Nausea/Vomiting Last Admin: 01/26/19 14:29 Dose: 4 mg Ondansetron HCl (Zofran) 4 mg IVP Q6H PRN PRN Reason: Nausea/Vomiting Quetiapine Fumarate (Seroquel) 50 mg PO [facility] Last Admin: 01/28/19 19:49 Dose: 50 mg Senna/Docusate Sodium (Senokot S) 2 tab PO BID PRN PRN Reason: Constipation Tamsulosin HCl (Flomax) 0.4 mg PO DAILY [facility] Last Admin: 01/29/19 09:23 Dose: 0.4 mg
[2019-01-29] MEDS: Acetaminophen 325 MG TAB PO PRN (20:43)
[2019-01-30] MEDS: Acetaminophen 325 MG TAB PO PRN (04:18)
--- NOTE | 2019-01-30 07:50 | RAD ---
AP VIEW CHEST: Date: 01/29/19 HISTORY: Dyspnea. FINDINGS: Comparison made to previous exam from 01/25/19. AP view of chest demonstrates sternotomy wires seen. A dual lead intracardiac defibrillator is seen. Pulmonary vascular congestion seen. No evidence of effusions, pneumonia, or pneumothorax seen. IMPRESSION: Pulmonary vascular congestion. Otherwise unremarkable AP view of chest. POS: [facility]
[2019-01-30] MEDS: Aspirin Chewable 81 MG TAB PO SCH (08:56)
[2019-01-30] MEDS: Cefdinir 300 MG CAP PO SCH ×2 (08:56→20:40)
[2019-01-30] MEDS: Atorvastatin Calcium 20 MG TAB PO SCH (08:56)
[2019-01-30] MEDS: Carvedilol 25 MG TAB PO SCH ×2 (08:56→20:40)
[2019-01-30] MEDS: Amlodipine 5 MG TAB PO SCH (08:56)
[2019-01-30] MEDS: Tamsulosin HCl 0.4 MG CAP PO SCH (08:57)
[2019-01-30] MEDS: Clopidogrel Bisulfate 75 MG TAB PO SCH (08:57)
[2019-01-30] MEDS: Famotidine 20 MG TAB PO SCH ×2 (08:57→20:40)
[2019-01-30] MEDS: Furosemide 20 MG TAB PO SCH (08:57)
[2019-01-30 09:23] LABS: #Eosinphils 0.2 thou/uL (0.0-0.7); #Lymphocytes 1.4 thou/uL (1.20-3.40); #Monocytes 1.1 thou/uL (0.11-0.59); #Neutrophils 6.3 thou/uL (1.40-6.50); %Basophils 0.2 % (0.0-1.0); %Eosinophils 1.9 % (0.0-10.0); %Lymphocytes 15.1 % (21.0-51.0); %Monocytes 12.6 % (0.0-10.0); %Neutrophils 70.2 % (42.0-75.0); Hemoglobin 13.2 g/dL (14.0-18.0); Mean Corpuscular HGB CONC 33.3 g/dL (32.0-36.0); Mean Corpuscular Hemoglobin 29.1 pg (27.0-31.0); Mean Corpuscular Volume 87.3 fL (78.0-98.0); Mean Platelet Volume 8.3 fL (7.4-10.4); Platelet Count 199 thou/uL (130-400); RBC Distribution Width 12.9 % (11.5-14.5); Red Blood Cell (RBC) Count 4.54 mill/uL (4.70-6.10)
[2019-01-30 09:47] LABS: ALT (SGPT) 13 U/L (8-55); AST (SGOT) 14 U/L (5-34); Albumin 3.1 g/dL (3.4-4.8); Alkaline Phosphatase 75 U/L (40-150); Anion Gap 12 mmol/L (10-20); BUN (Urea Nitrogen) 37 mg/dL (8.4-25.7); Bilirubin, Total 1.4 mg/dL (0.2-1.2); Calc. Creatinine Clearance 61 mL/min (70-130); Calcium 8.5 mg/dL (7.8-10.44); Carbon Dioxide 34 mmol/L (23-31); Chloride 94 mmol/L (98-107); Estimated GFR-MDRD 73; Globulin 2.6 g/dL (2.4-3.5); Glucose 89 mg/dL (83-110); Protein, Total 5.7 g/dL (5.8-8.1); Sodium 138 mmol/L (136-145)
[2019-01-30 09:51] LABS: Potassium 2.4 mmol/L (3.5-5.1)
--- NOTE | 2019-01-30 10:28 | EKG ---
Test Reason : Blood Pressure : / mmHG Vent. Rate : 089 BPM Atrial Rate : 089 BPM P-R Int : 000 ms QRS Dur : 146 ms QT Int : 436 ms P-R-T Axes : 000 -88 035 degrees QTc Int : 530 ms Sinus rhythm with short [place] Right bundle branch block Left anterior fascicular block Bifascicular block Inferior infarct , age undetermined Abnormal ECG Confirmed by DANIEL JC ([id number]), film editor KALANI LANDAVERDE ([id number]) on 01/30/2019 10:28:41 AM Referred By: Confirmed By:DANIEL JC
[2019-01-30] MEDS: Potassium Chloride 20 MEQ TAB PO SCH ×4 (12:03→20:40)
[2019-01-30] MEDS ORDERED: Mag-Al 1200 mg/1200 mg/30 ML UDCUP PO SCH (15:00)
--- NOTE | 2019-01-30 15:18 | PDOC.PN ---
- Subjective Encounter Start Date: 01/30/19 Encounter Start Time: 08:20 Subjective: awake, responds well to verbal stimuli -: no sob - Objective Resuscitation Status - Order Detail: 01/20/19 18:11 Resuscitation Status Routine Resuscitation Status: FULL: Full Resuscitation Discussed with: Coreen JUAREZ Reviewed: Yes Vital Signs & Weight: Vital Signs (12 hours) Temp Pulse Resp BP Pulse Ox 01/30/19 08:00 94 L 01/30/19 07:26 97.6 F 60 18 142/66 H 94 L Weight Admit Weight 167 lb 1.6 oz Weight 157 lb I&O: 01/29/19 01/30/19 01/31/19 06:59 06:59 06:59 Intake Total 600 120 Balance 600 120 Result Diagrams: 01/30/19 09:00 01/30/19 09:00 Additional Labs: Accuchecks 01/30/19 01/30/19 01/29/19 11:39 04:52 20:03 POC Glucose 90 93 114 H 01/29/19 16:07 POC Glucose 88 Phys Exam - Physical Examination HEENT: PERRLA, sclera anicteric Neck: no JVD, supple Respiratory: no wheezing, no rales Cardiovascular: RRR, no significant murmur Gastrointestinal: soft, non-tender, positive bowel sounds Musculoskeletal: no edema, pulses present Neurological: non-focal, moves all 4 limbs Dx/Plan (1) Acute on chronic diastolic (congestive) heart failure Code(s): I50.33 - ACUTE ON CHRONIC DIASTOLIC (CONGESTIVE) HEART FAILURE Status : Acute (2) Acute metabolic encephalopathy Code(s): G93.41 - METABOLIC ENCEPHALOPATHY Status: Acute Comment: due to respiratory failure on top of underlying vascular dementia (3) Acute respiratory failure with hypoxia Code(s): J96.01 - ACUTE RESPIRATORY FAILURE WITH HYPOXIA Status: Resolved (4) Cardiomyopathy Code(s): I42.9 - CARDIOMYOPATHY, UNSPECIFIED Status: Chronic Qualifiers: Cardiomyopathy type: unspecified Qualified Code(s): I42.9 - Cardiomyopathy , unspecified (5) Dementia Code(s): F03.90 - UNSPECIFIED DEMENTIA WITHOUT BEHAVIORAL DISTURBANCE Status: Chronic Comment: worse ever since stroke last year, likely vascular component (6) Hypertension Code(s): I10 - ESSENTIAL (PRIMARY) HYPERTENSION Status: Chronic Qualifiers: Hypertension type: essential hypertension Qualified Code(s): I10 - Essential (primary) hypertension (7) CAD (coronary artery disease) Code(s): I25.10 - ATHSCL HEART DISEASE OF [place] CORONARY ARTERY W/O ANG PCTRS Status: Chronic Qualifiers: Coronary Disease-Associated Artery/Lesion type: bypass graft [place] vs. transplanted heart: [place] heart Associated angina: without angina Qualified Code(s): I25.810 - Atherosclerosis of coronary artery bypass graft(s) without angina pectoris (8) Diabetes mellitus Code(s): E11.9 - TYPE 2 DIABETES MELLITUS WITHOUT COMPLICATIONS Status: Chronic Qualifiers: Diabetes mellitus type: type 2 Diabetes mellitus terminal computer operator insulin use: without terminal computer operator use Diabetes mellitus complication status: without complication Qualified Code(s): E11.9 - Type 2 diabetes mellitus without complications (9) Dyslipidemia Code(s): E78.5 - HYPERLIPIDEMIA, UNSPECIFIED Status: Chronic - Plan replace potassium -: maalox one dose now -: continue norvasc, coreg, lasix, benicar, plavix, asp and lipitor -: will dc omnicef in am, increase seroquel to bid -: has 1:1 sitter for periodic agitation * . Review of Systems - Medications/Allergies Allergies/Adverse Reactions: Allergies Allergy/AdvReac Type Severity Reaction Status Date / Time iodine Allergy Verified 10/07/17 12:01 Medications: Current Medications Acetaminophen (Tylenol) 650 mg PO Q4H PRN PRN Reason: Headache/Fever/Mild Pain (1-3) Last Admin: 01/30/19 04:18 Dose: 650 mg Acetaminophen (Tylenol) 650 mg [place] Q4H PRN PRN Reason: Headache/Fever/Mild Pain (1-3) Al Hydroxide/Mg Hydroxide (Maalox) 15 ml PO NOW [facility] Stop: 01/30/19 17:00 Last Admin: 01/30/19 15:00 Dose: 15 ml Amlodipine Besylate (Norvasc) 5 mg PO DAILY [facility] Last Admin: 01/30/19 08:56 Dose: 5 mg Aspirin (Aspirin Chewable) 81 mg PO DAILY [facility] Last Admin: 01/30/19 08:56 Dose: 81 mg Atorvastatin Calcium (Lipitor) 20 mg PO DAILY [facility] Last Admin: 01/30/19 08:56 Dose: 20 mg Carvedilol (Coreg) 25 mg PO BID [facility] Last Admin: 01/30/19 08:56 Dose: 25 mg Cefdinir (Omnicef) 300 mg PO BID [facility] Last Admin: 01/30/19 08:56 Dose: 300 mg Clopidogrel Bisulfate (Plavix) 75 mg PO DAILY [facility] Last Admin: 01/30/19 08:57 Dose: 75 mg Dextrose/Water (Dextrose 50%) 25 gm SLOW IVP PRN PRN PRN Reason: Hypoglycemia Famotidine (Pepcid) 20 mg PO BID [facility] Last Admin: 01/30/19 08:57 Dose: 20 mg Furosemide (Lasix) 20 mg PO DAILY [facility] Last Admin: 01/30/19 08:57 Dose: 20 mg Glucagon (Glucagon) 1 mg IM PRN PRN PRN Reason: Hypoglycemia Guaifenesin/Dextromethorphan (Robitussin Dm) 15 ml PO Q4H PRN PRN Reason: Cough Hydralazine HCl (Apresoline) 10 mg SLOW IVP Q4H PRN PRN Reason: SBP Greater Than 170 Last Admin: 01/24/19 00:11 Dose: 10 mg Dextrose/Water (D5w) 1,000 mls @ 0 mls/hr IV .Q0M PRN PRN Reason: Hypoglycemia Insulin Human Lispro (Humalog) 0 units SC .MILD SLIDING SCALE PRN PRN Reason: Mild Correctional Scale Insulin Human Lispro (Humalog) 0 units SC .BEDTIME SLIDING SC PRN PRN Reason: Bedtime Correctional Scale Lorazepam (Ativan) 0.25 mg SLOW IVP Q6H PRN PRN Reason: Anxiety/Agitation Last Admin: 01/25/19 21:28 Dose: 0.25 mg Olmesartan (Benicar) 20 mg PO DAILY [facility] Last Admin: 01/30/19 08:56 Dose: 20 mg Ondansetron HCl (Zofran Odt) 4 mg PO Q6H PRN PRN Reason: Nausea/Vomiting Last Admin: 01/26/19 14:29 Dose: 4 mg Ondansetron HCl (Zofran) 4 mg IVP Q6H PRN PRN Reason: Nausea/Vomiting Potassium Chloride (K-Dur) 40 meq PO Q6HR [facility] Stop: 01/31/19 06:01 Last Admin: 01/30/19 12:03 Dose: 40 meq Quetiapine Fumarate (Seroquel) 50 mg PO HS [facility] Last Admin: 01/29/19 19:51 Dose: 50 mg Senna/Docusate Sodium (Senokot S) 2 tab PO BID PRN PRN Reason: Constipation Tamsulosin HCl (Flomax) 0.4 mg PO DAILY [facility] Last Admin: 01/30/19 08:57 Dose: 0.4 mg
[2019-01-31] MEDS: Potassium Chloride 20 MEQ TAB PO SCH ×4 (05:25→23:22)
[2019-01-31] MEDS: Atorvastatin Calcium 20 MG TAB PO SCH (07:52)
[2019-01-31] MEDS: Cefdinir 300 MG CAP PO SCH (07:52)
[2019-01-31] MEDS: Furosemide 20 MG TAB PO SCH (07:52)
[2019-01-31] MEDS: Amlodipine 5 MG TAB PO SCH (07:52)
[2019-01-31] MEDS: Tamsulosin HCl 0.4 MG CAP PO SCH (07:52)
[2019-01-31] MEDS: Clopidogrel Bisulfate 75 MG TAB PO SCH (07:52)
[2019-01-31] MEDS: Carvedilol 25 MG TAB PO SCH ×2 (07:52→21:49)
[2019-01-31] MEDS: Famotidine 20 MG TAB PO SCH ×2 (07:53→21:49)
[2019-01-31] MEDS: Aspirin Chewable 81 MG TAB PO SCH (07:53)
[2019-01-31 08:07] LABS: Anion Gap 12 mmol/L (10-20); BUN (Urea Nitrogen) 29 mg/dL (8.4-25.7); Calc. Creatinine Clearance 64 mL/min (70-130); Calcium 8.6 mg/dL (7.8-10.44); Carbon Dioxide 34 mmol/L (23-31); Chloride 97 mmol/L (98-107); Estimated GFR-MDRD 76; Glucose 107 mg/dL (83-110); Sodium 140 mmol/L (136-145)
[2019-01-31 08:09] LABS: Potassium 2.9 mmol/L (3.5-5.1)
--- NOTE | 2019-01-31 12:24 | PDOC.PN ---
- Subjective Encounter Start Date: 01/31/19 Encounter Start Time: 10:00 Subjective: awake, not in distress -: ate his breakfast -: is more calm than yesterday - Objective Resuscitation Status - Order Detail: 01/20/19 18:11 Resuscitation Status Routine Resuscitation Status: FULL: Full Resuscitation Discussed with: Coreen JUAREZ Reviewed: Yes Vital Signs & Weight: Vital Signs (12 hours) Temp Pulse Resp BP Pulse Ox 01/31/19 08:28 98.2 F 65 16 129/63 94 L Weight Admit Weight 167 lb 1.6 oz Weight 160 lb 3 oz I&O: 01/30/19 01/31/19 02/01/19 06:59 06:59 06:59 Intake Total 120 Balance 120 Result Diagrams: 01/30/19 09:00 01/31/19 07:25 Additional Labs: Accuchecks 01/31/19 01/31/19 01/30/19 11:04 05:28 20:17 POC Glucose 179 H 86 100 Phys Exam - Physical Examination HEENT: PERRLA, sclera anicteric Neck: no JVD, supple Respiratory: no wheezing, no rales Cardiovascular: RRR, no significant murmur Gastrointestinal: soft, non-tender, positive bowel sounds Musculoskeletal: no edema, pulses present Neurological: non-focal, moves all 4 limbs Dx/Plan (1) Acute on chronic diastolic (congestive) heart failure Code(s): I50.33 - ACUTE ON CHRONIC DIASTOLIC (CONGESTIVE) HEART FAILURE Status : Resolved (2) Acute metabolic encephalopathy Code(s): G93.41 - METABOLIC ENCEPHALOPATHY Status: Acute Comment: due to respiratory failure on top of underlying vascular dementia (3) Acute respiratory failure with hypoxia Code(s): J96.01 - ACUTE RESPIRATORY FAILURE WITH HYPOXIA Status: Resolved (4) Cardiomyopathy Code(s): I42.9 - CARDIOMYOPATHY, UNSPECIFIED Status: Chronic Qualifiers: Cardiomyopathy type: unspecified Qualified Code(s): I42.9 - Cardiomyopathy , unspecified (5) Dementia Code(s): F03.90 - UNSPECIFIED DEMENTIA WITHOUT BEHAVIORAL DISTURBANCE Status: Chronic Comment: worse ever since stroke last year, likely vascular component (6) Hypertension Code(s): I10 - ESSENTIAL (PRIMARY) HYPERTENSION Status: Chronic Qualifiers: Hypertension type: essential hypertension Qualified Code(s): I10 - Essential (primary) hypertension (7) CAD (coronary artery disease) Code(s): I25.10 - ATHSCL HEART DISEASE OF [place] CORONARY ARTERY W/O ANG PCTRS Status: Chronic Qualifiers: Coronary Disease-Associated Artery/Lesion type: bypass graft [place] vs. transplanted heart: [place] heart Associated angina: without angina Qualified Code(s): I25.810 - Atherosclerosis of coronary artery bypass graft(s) without angina pectoris (8) Diabetes mellitus Code(s): E11.9 - TYPE 2 DIABETES MELLITUS WITHOUT COMPLICATIONS Status: Chronic Qualifiers: Diabetes mellitus type: type 2 Diabetes mellitus half-way insulin use: without half-way use Diabetes mellitus complication status: without complication Qualified Code(s): E11.9 - Type 2 diabetes mellitus without complications (9) Dyslipidemia Code(s): E78.5 - HYPERLIPIDEMIA, UNSPECIFIED Status: Chronic - Plan awaiting placement -: is off sitter from yesterday -: is on seroquel am and hs, has finished course of omnicef -: continue K supplement, dc lasix, is euvolemic now -: on norvasc, coreg, benicar, asp, lipitor, plavix, flomax. * . Review of Systems - Medications/Allergies Allergies/Adverse Reactions: Allergies Allergy/AdvReac Type Severity Reaction Status Date / Time iodine Allergy Verified 10/07/17 12:01 Medications: Current Medications Acetaminophen (Tylenol) 650 mg PO Q4H PRN PRN Reason: Headache/Fever/Mild Pain (1-3) Last Admin: 01/30/19 04:18 Dose: 650 mg Acetaminophen (Tylenol) 650 mg [place] Q4H PRN PRN Reason: Headache/Fever/Mild Pain (1-3) Amlodipine Besylate (Norvasc) 5 mg PO DAILY [facility] Last Admin: 01/31/19 07:52 Dose: 5 mg Aspirin (Aspirin Chewable) 81 mg PO DAILY [facility] Last Admin: 01/31/19 07:53 Dose: 81 mg Atorvastatin Calcium (Lipitor) 20 mg PO DAILY [facility] Last Admin: 01/31/19 07:52 Dose: 20 mg Carvedilol (Coreg) 25 mg PO BID [facility] Last Admin: 01/31/19 07:52 Dose: 25 mg Clopidogrel Bisulfate (Plavix) 75 mg PO DAILY [facility] Last Admin: 01/31/19 07:52 Dose: 75 mg Dextrose/Water (Dextrose 50%) 25 gm SLOW IVP PRN PRN PRN Reason: Hypoglycemia Famotidine (Pepcid) 20 mg PO BID [facility] Last Admin: 01/31/19 07:53 Dose: 20 mg Glucagon (Glucagon) 1 mg IM PRN PRN PRN Reason: Hypoglycemia Guaifenesin/Dextromethorphan (Robitussin Dm) 15 ml PO Q4H PRN PRN Reason: Cough Hydralazine HCl (Apresoline) 10 mg SLOW IVP Q4H PRN PRN Reason: SBP Greater Than 170 Last Admin: 01/24/19 00:11 Dose: 10 mg Dextrose/Water (D5w) 1,000 mls @ 0 mls/hr IV .Q0M PRN PRN Reason: Hypoglycemia Insulin Human Lispro (Humalog) 0 units SC .MILD SLIDING SCALE PRN PRN Reason: Mild Correctional Scale Insulin Human Lispro (Humalog) 0 units SC .BEDTIME SLIDING SC PRN PRN Reason: Bedtime Correctional Scale Lorazepam (Ativan) 0.25 mg SLOW IVP Q6H PRN PRN Reason: Anxiety/Agitation Last Admin: 01/25/19 21:28 Dose: 0.25 mg Olmesartan (Benicar) 20 mg PO DAILY [facility] Last Admin: 01/31/19 07:52 Dose: 20 mg Ondansetron HCl (Zofran Odt) 4 mg PO Q6H PRN PRN Reason: Nausea/Vomiting Last Admin: 01/26/19 14:29 Dose: 4 mg Ondansetron HCl (Zofran) 4 mg IVP Q6H PRN PRN Reason: Nausea/Vomiting Potassium Chloride (K-Dur) 40 meq PO Q6HR [facility] Stop: 02/01/19 18:01 Potassium Chloride (K-Dur) 40 meq PO NOW [facility] Stop: 01/31/19 14:30 Quetiapine Fumarate (Seroquel) 50 mg PO HS [facility] Last Admin: 01/30/19 20:40 Dose: 50 mg Quetiapine Fumarate (Seroquel) 25 mg PO DAILY [facility] Last Admin: 01/31/19 07:52 Dose: 25 mg Senna/Docusate Sodium (Senokot S) 2 tab PO BID PRN PRN Reason: Constipation Tamsulosin HCl (Flomax) 0.4 mg PO DAILY [facility] Last Admin: 01/31/19 07:52 Dose: 0.4 mg
[2019-01-31] MEDS ORDERED: Potassium Chloride 20 MEQ TAB PO SCH (12:30)
[2019-01-31] MEDS: Lorazepam 0.5 MG TAB PO PRN (21:49)
[2019-02-01] MEDS: Potassium Chloride 20 MEQ TAB PO SCH ×3 (04:52→17:55)
[2019-02-01] MEDS: Clopidogrel Bisulfate 75 MG TAB PO SCH (08:31)
[2019-02-01] MEDS: Atorvastatin Calcium 20 MG TAB PO SCH (08:31)
[2019-02-01] MEDS: Famotidine 20 MG TAB PO SCH ×2 (08:31→20:50)
[2019-02-01] MEDS: Tamsulosin HCl 0.4 MG CAP PO SCH (08:31)
[2019-02-01] MEDS: Aspirin Chewable 81 MG TAB PO SCH (08:31)
[2019-02-01] MEDS: Carvedilol 25 MG TAB PO SCH ×2 (08:33→20:50)
[2019-02-01] MEDS: Amlodipine 5 MG TAB PO SCH (08:33)
[2019-02-01 11:23] VITALS: BMI 25.9
[2019-02-01 11:29] LABS: Anion Gap 15 mmol/L (10-20); BUN (Urea Nitrogen) 25 mg/dL (8.4-25.7); Calc. Creatinine Clearance 65 mL/min (70-130); Calcium 8.7 mg/dL (7.8-10.44); Carbon Dioxide 28 mmol/L (23-31); Chloride 103 mmol/L (98-107); Estimated GFR-MDRD 71; Glucose 88 mg/dL (83-110); Potassium 3.5 mmol/L (3.5-5.1); Sodium 142 mmol/L (136-145)
--- NOTE | 2019-02-01 12:01 | PDOC.PN ---
- Subjective Encounter Start Date: 02/01/19 Encounter Start Time: 07:00 Subjective: still sleepy, awakens to touch -: not in distress - Objective Resuscitation Status - Order Detail: 01/20/19 18:11 Resuscitation Status Routine Resuscitation Status: FULL: Full Resuscitation Discussed with: Coreen JUAREZ Reviewed: Yes Vital Signs & Weight: Vital Signs (12 hours) Temp Pulse Resp BP BP Pulse Ox 02/01/19 08:36 98.2 F 65 16 150/70 H 92 L 02/01/19 08:33 65 150/70 H 02/01/19 04:34 98 F 65 18 144/81 H 94 L Weight Admit Weight 167 lb 1.6 oz Weight 170 lb 4 oz I&O: 01/31/19 02/01/19 02/02/19 06:59 06:59 06:59 Intake Total 120 Balance 120 Result Diagrams: 01/30/19 09:00 02/01/19 10:51 Additional Labs: Accuchecks 02/01/19 01/31/19 04:51 16:43 POC Glucose 86 104 Phys Exam - Physical Examination HEENT: PERRLA, moist MMs Neck: no JVD, supple Respiratory: no wheezing, no rales Cardiovascular: RRR, no significant murmur Gastrointestinal: soft, non-tender, positive bowel sounds Musculoskeletal: no edema, pulses present Neurological: non-focal, moves all 4 limbs Dx/Plan (1) Acute on chronic diastolic (congestive) heart failure Code(s): I50.33 - ACUTE ON CHRONIC DIASTOLIC (CONGESTIVE) HEART FAILURE Status : Resolved (2) Acute metabolic encephalopathy Code(s): G93.41 - METABOLIC ENCEPHALOPATHY Status: Acute Comment: Likely at baseline now (3) Acute respiratory failure with hypoxia Code(s): J96.01 - ACUTE RESPIRATORY FAILURE WITH HYPOXIA Status: Resolved (4) Cardiomyopathy Code(s): I42.9 - CARDIOMYOPATHY, UNSPECIFIED Status: Chronic Qualifiers: Cardiomyopathy type: unspecified Qualified Code(s): I42.9 - Cardiomyopathy , unspecified (5) Dementia Code(s): F03.90 - UNSPECIFIED DEMENTIA WITHOUT BEHAVIORAL DISTURBANCE Status: Chronic Comment: worse ever since stroke last year, likely vascular component (6) Hypertension Code(s): I10 - ESSENTIAL (PRIMARY) HYPERTENSION Status: Chronic Qualifiers: Hypertension type: essential hypertension Qualified Code(s): I10 - Essential (primary) hypertension (7) CAD (coronary artery disease) Code(s): I25.10 - ATHSCL HEART DISEASE OF [place] CORONARY ARTERY W/O ANG PCTRS Status: Chronic Qualifiers: Coronary Disease-Associated Artery/Lesion type: bypass graft [place] vs. 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 pectoris (8) Diabetes mellitus Code(s): E11.9 - TYPE 2 DIABETES MELLITUS WITHOUT COMPLICATIONS Status: Chronic Qualifiers: Diabetes mellitus type: type 2 Diabetes mellitus fpc insulin use: without terminal carman use Diabetes mellitus complication status: without complication Qualified Code(s): E11.9 - Type 2 diabetes mellitus without complications (9) Dyslipidemia Code(s): E78.5 - HYPERLIPIDEMIA, UNSPECIFIED Status: Chronic - Plan is on norvasc, asp, lipitor, plavix, coreg, lasix, benicar, flomax -: seroquel, has been stable cognitively -: amb with assistance in room -: awaiting placement * . Review of Systems - Medications/Allergies Allergies/Adverse Reactions: Allergies Allergy/AdvReac Type Severity Reaction Status Date / Time iodine Allergy Verified 10/07/17 12:01 Medications: Current Medications Acetaminophen (Tylenol) 650 mg PO Q4H PRN PRN Reason: Headache/Fever/Mild Pain (1-3) Last Admin: 01/30/19 04:18 Dose: 650 mg Acetaminophen (Tylenol) 650 mg [place] Q4H PRN PRN Reason: Headache/Fever/Mild Pain (1-3) Amlodipine Besylate (Norvasc) 5 mg PO DAILY [facility] Last Admin: 02/01/19 08:33 Dose: 5 mg Aspirin (Aspirin Chewable) 81 mg PO DAILY [facility] Last Admin: 02/01/19 08:31 Dose: 81 mg Atorvastatin Calcium (Lipitor) 20 mg PO DAILY [facility] Last Admin: 02/01/19 08:31 Dose: 20 mg Carvedilol (Coreg) 25 mg PO BID [facility] Last Admin: 02/01/19 08:33 Dose: 25 mg Clopidogrel Bisulfate (Plavix) 75 mg PO DAILY [facility] Last Admin: 02/01/19 08:31 Dose: 75 mg Dextrose/Water (Dextrose 50%) 25 gm SLOW IVP PRN PRN PRN Reason: Hypoglycemia Famotidine (Pepcid) 20 mg PO BID [facility] Last Admin: 02/01/19 08:31 Dose: 20 mg Glucagon (Glucagon) 1 mg IM PRN PRN PRN Reason: Hypoglycemia Guaifenesin/Dextromethorphan (Robitussin Dm) 15 ml PO Q4H PRN PRN Reason: Cough Hydralazine HCl (Apresoline) 10 mg SLOW IVP Q4H PRN PRN Reason: SBP Greater Than 170 Last Admin: 01/24/19 00:11 Dose: 10 mg Dextrose/Water (D5w) 1,000 mls @ 0 mls/hr IV .Q0M PRN PRN Reason: Hypoglycemia Insulin Human Lispro (Humalog) 0 units SC .MILD SLIDING SCALE PRN PRN Reason: Mild Correctional Scale Insulin Human Lispro (Humalog) 0 units SC .BEDTIME SLIDING SC PRN PRN Reason: Bedtime Correctional Scale Lorazepam (Ativan) 0.5 mg PO Q6H PRN PRN Reason: Anxiety Last Admin: 01/31/19 21:49 Dose: 0.5 mg Olmesartan (Benicar) 20 mg PO DAILY [facility] Last Admin: 02/01/19 08:33 Dose: 20 mg Ondansetron HCl (Zofran Odt) 4 mg PO Q6H PRN PRN Reason: Nausea/Vomiting Last Admin: 01/26/19 14:29 Dose: 4 mg Ondansetron HCl (Zofran) 4 mg IVP Q6H PRN PRN Reason: Nausea/Vomiting Potassium Chloride (K-Dur) 40 meq PO Q6HR [facility] Stop: 02/01/19 18:01 Last Admin: 02/01/19 11:19 Dose: 40 meq Quetiapine Fumarate (Seroquel) 50 mg PO HS [facility] Last Admin: 01/31/19 21:49 Dose: 50 mg Quetiapine Fumarate (Seroquel) 25 mg PO DAILY [facility] Last Admin: 02/01/19 08:31 Dose: 25 mg Senna/Docusate Sodium (Senokot S) 2 tab PO BID PRN PRN Reason: Constipation Tamsulosin HCl (Flomax) 0.4 mg PO DAILY [facility] Last Admin: 02/01/19 08:31 Dose: 0.4 mg
[2019-02-01] MEDS: Lorazepam 0.5 MG TAB PO PRN (20:50)
[2019-02-02 08:12] LABS: Anion Gap 15 mmol/L (10-20); BUN (Urea Nitrogen) 25 mg/dL (8.4-25.7); Calc. Creatinine Clearance 63 mL/min (70-130); Calcium 9.1 mg/dL (7.8-10.44); Carbon Dioxide 27 mmol/L (23-31); Chloride 106 mmol/L (98-107); Estimated GFR-MDRD 71; Glucose 81 mg/dL (83-110); Potassium 4.3 mmol/L (3.5-5.1); Sodium 144 mmol/L (136-145)
[2019-02-02 08:13] VITALS: TEMP 97.9
[2019-02-02] MEDS: Clopidogrel Bisulfate 75 MG TAB PO SCH (08:37)
[2019-02-02] MEDS: Tamsulosin HCl 0.4 MG CAP PO SCH (08:37)
[2019-02-02] MEDS: Carvedilol 25 MG TAB PO SCH (08:37)
[2019-02-02] MEDS: Amlodipine 5 MG TAB PO SCH (08:38)
[2019-02-02] MEDS: Atorvastatin Calcium 20 MG TAB PO SCH (08:38)
[2019-02-02] MEDS: Aspirin Chewable 81 MG TAB PO SCH (08:38)
[2019-02-02] MEDS: Famotidine 20 MG TAB PO SCH (08:42)
--- NOTE | 2019-02-02 13:03 | PDOC.PN ---
- Subjective Encounter Start Date: 02/02/19 Encounter Start Time: 08:25 Subjective: awake, not in distress - Objective Resuscitation Status - Order Detail: 01/20/19 18:11 Resuscitation Status Routine Resuscitation Status: FULL: Full Resuscitation Discussed with: Coreen JUAREZ Reviewed: Yes Vital Signs & Weight: Vital Signs (12 hours) Temp Pulse Resp BP 02/02/19 08:38 72 02/02/19 08:00 97.9 F 72 22 H 122/58 L Weight Admit Weight 167 lb 1.6 oz Weight 166 lb 5 oz I&O: 02/01/19 02/02/19 02/03/19 06:59 06:59 06:59 Intake Total 120 690 Output Total 202 Balance 120 488 Result Diagrams: 01/30/19 09:00 02/02/19 07:09 Additional Labs: Accuchecks 02/02/19 02/02/19 02/01/19 12:00 05:33 19:55 POC Glucose 116 H 80 89 Phys Exam - Physical Examination HEENT: PERRLA, moist MMs Neck: no JVD, supple Respiratory: no wheezing, no rales Cardiovascular: RRR, no significant murmur Gastrointestinal: soft, non-tender, positive bowel sounds Musculoskeletal: no edema, pulses present Neurological: non-focal, moves all 4 limbs Dx/Plan (1) Acute on chronic diastolic (congestive) heart failure Code(s): I50.33 - ACUTE ON CHRONIC DIASTOLIC (CONGESTIVE) HEART FAILURE Status : Resolved (2) Acute metabolic encephalopathy Code(s): G93.41 - METABOLIC ENCEPHALOPATHY Status: Acute Comment: Likely at baseline now (3) Acute respiratory failure with hypoxia Code(s): J96.01 - ACUTE RESPIRATORY FAILURE WITH HYPOXIA Status: Resolved (4) Cardiomyopathy Code(s): I42.9 - CARDIOMYOPATHY, UNSPECIFIED Status: Chronic Qualifiers: Cardiomyopathy type: unspecified Qualified Code(s): I42.9 - Cardiomyopathy , unspecified (5) Dementia Code(s): F03.90 - UNSPECIFIED DEMENTIA WITHOUT BEHAVIORAL DISTURBANCE Status: Chronic Comment: worse ever since stroke last year, likely vascular component (6) Hypertension Code(s): I10 - ESSENTIAL (PRIMARY) HYPERTENSION Status: Chronic Qualifiers: Hypertension type: essential hypertension Qualified Code(s): I10 - Essential (primary) hypertension (7) CAD (coronary artery disease) Code(s): I25.10 - ATHSCL HEART DISEASE OF [place] CORONARY ARTERY W/O ANG PCTRS Status: Chronic Qualifiers: Coronary Disease-Associated Artery/Lesion type: bypass graft [place] vs. 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 pectoris (8) Diabetes mellitus Code(s): E11.9 - TYPE 2 DIABETES MELLITUS WITHOUT COMPLICATIONS Status: Chronic Qualifiers: Diabetes mellitus type: type 2 Diabetes mellitus penitentiary insulin use: without penitentiary use Diabetes mellitus complication status: without complication Qualified Code(s): E11.9 - Type 2 diabetes mellitus without complications (9) Dyslipidemia Code(s): E78.5 - HYPERLIPIDEMIA, UNSPECIFIED Status: Chronic - Plan may dc anytime to snf likely [facility] -: encourage po intake -: megace bid -: continue norvasc, asp, lipitor, plavix, coreg, benicar, flomax -: seroquel has helped his agitation well * . Review of Systems - Medications/Allergies Allergies/Adverse Reactions: Allergies Allergy/AdvReac Type Severity Reaction Status Date / Time iodine Allergy Verified 10/07/17 12:01 Medications: Current Medications Acetaminophen (Tylenol) 650 mg PO Q4H PRN PRN Reason: Headache/Fever/Mild Pain (1-3) Last Admin: 01/30/19 04:18 Dose: 650 mg Acetaminophen (Tylenol) 650 mg [place] Q4H PRN PRN Reason: Headache/Fever/Mild Pain (1-3) Amlodipine Besylate (Norvasc) 5 mg PO DAILY [facility] Last Admin: 02/02/19 08:38 Dose: 5 mg Aspirin (Aspirin Chewable) 81 mg PO DAILY [facility] Last Admin: 02/02/19 08:38 Dose: 81 mg Atorvastatin Calcium (Lipitor) 20 mg PO DAILY [facility] Last Admin: 02/02/19 08:38 Dose: 20 mg Carvedilol (Coreg) 25 mg PO BID [facility] Last Admin: 02/02/19 08:37 Dose: 25 mg Clopidogrel Bisulfate (Plavix) 75 mg PO DAILY [facility] Last Admin: 02/02/19 08:37 Dose: 75 mg Dextrose/Water (Dextrose 50%) 25 gm SLOW IVP PRN PRN PRN Reason: Hypoglycemia Famotidine (Pepcid) 20 mg PO BID [facility] Last Admin: 02/02/19 08:42 Dose: Not Given Glucagon (Glucagon) 1 mg IM PRN PRN PRN Reason: Hypoglycemia Guaifenesin/Dextromethorphan (Robitussin Dm) 15 ml PO Q4H PRN PRN Reason: Cough Hydralazine HCl (Apresoline) 10 mg SLOW IVP Q4H PRN PRN Reason: SBP Greater Than 170 Last Admin: 01/24/19 00:11 Dose: 10 mg Dextrose/Water (D5w) 1,000 mls @ 0 mls/hr IV .Q0M PRN PRN Reason: Hypoglycemia Insulin Human Lispro (Humalog) 0 units SC .MILD SLIDING SCALE PRN PRN Reason: Mild Correctional Scale Insulin Human Lispro (Humalog) 0 units SC .BEDTIME SLIDING SC PRN PRN Reason: Bedtime Correctional Scale Lorazepam (Ativan) 0.5 mg PO Q6H PRN PRN Reason: Anxiety Last Admin: 02/01/19 20:50 Dose: 0.5 mg Olmesartan (Benicar) 20 mg PO DAILY [facility] Last Admin: 02/02/19 08:37 Dose: 20 mg Ondansetron HCl (Zofran Odt) 4 mg PO Q6H PRN PRN Reason: Nausea/Vomiting Last Admin: 01/26/19 14:29 Dose: 4 mg Ondansetron HCl (Zofran) 4 mg IVP Q6H PRN PRN Reason: Nausea/Vomiting Quetiapine Fumarate (Seroquel) 50 mg PO [facility] Last Admin: 02/01/19 20:50 Dose: 50 mg Quetiapine Fumarate (Seroquel) 25 mg PO DAILY [facility] Last Admin: 02/02/19 08:37 Dose: 25 mg Senna/Docusate Sodium (Senokot S) 2 tab PO BID PRN PRN Reason: Constipation Tamsulosin HCl (Flomax) 0.4 mg PO DAILY [facility] Last Admin: 02/02/19 08:37 Dose: 0.4 mg
[2019-02-02] MEDS: Lorazepam 0.5 MG TAB PO PRN (17:16)
[2019-02-02 19:31] VITALS: BP 143/73
[2019-02-03] MEDS ORDERED: Megestrol Acetate 40 MG TAB PO SCH (09:00)
--- NOTE | 2019-02-03 11:28 | DIS ---
DATE OF ADMISSION: 01/20/2019 DATE OF DISCHARGE: 02/02/2019 DISCHARGE DISPOSITION: To [facility], [facility]. PRIMARY DISCHARGE DIAGNOSES: Acute on chronic congestive heart failure exacerbation with diastolic dysfunction; acute metabolic encephalopathy; acute respiratory failure with hypoxia due to congestive heart failure exacerbation, resolved; cardiomyopathy; dementia, likely vascular component as well contributing to it with a history of prior stroke; hypertension; coronary artery disease; diabetes mellitus, type 2; dyslipidemia. PROCEDURES DONE DURING HOSPITALIZATION: Echo with 2D Doppler showed EF of 55% to 60%. CT angio chest, no evidence of PE. CT brain, no acute intracranial abnormality. Stable chronic changes were seen. There are chronic small vessel ischemic changes with cerebral volume loss. No acute cortical infarct or hemorrhage was seen. Blood cultures x2, no growth. White count of 3, H and H 13 and 42. Troponin x3 negative. BNP 197. Influenza A and B antigens were negative. DISCHARGE MEDICATIONS: 1. Aspirin 81 mg p.o. daily. 2. Plavix 75 mg p.o. daily. 3. Coreg 25 mg twice daily. 4. Norvasc with olmesartan 5/20 mg 1 tab daily. 5. Flomax 0.4 mg p.o. daily. 6. Atorvastatin 20 mg daily. 7. Pepcid 20 mg twice daily. 8. Megace 40 mg p.o. daily for appetite stimulation. 9. Seroquel 25 mg p.o. daily and 50 mg p.o. at bedtime. 10. Senokot 2 tabs p.o. twice daily p.r.n. for constipation. ALLERGIES: ALLERGIC TO IODINE. INPATIENT CONSULT: Dr. Velasquez/Dr. Murry for Cardiology. BRIEF COURSE DURING HOSPITALIZATION: The patient initially got admitted on the with shortness of breath and cough. The patient also had EKG changes suggestive of ST depression in V2 and V3. He initially required 2 L of nasal cannula oxygen supplementation to keep saturations above 90%. The patient was initially suspected to have had pneumonia and was placed on broad-spectrum antibiotics. He also had evidence of CHF exacerbation with diastolic dysfunction. He had acute encephalopathy during the course of his stay requiring escalating dose of Seroquel. Blood cultures x2 were negative. The patient finally came out of oxygen supplementation and was breathing on room air. He is deconditioned, but he is able to ambulate in the room. The patient's agitation has been fairly well controlled on current Seroquel. He does get agitated at times when stimulated, but otherwise remains calm. He has been accepted to [facility] and will be shortly discharged there. A total of 35 minutes was spent on discharge plan. Please see a [id number] documentation for the day of discharge on [employer]. Job ID: [id number] MTDD
== END 2019-02-02 19:19 | DRG 291 ==
LOC: ERS 16:32 → 2NO 17:31 → T4-A 01-24 12:54
PROVIDERS: ADMIT Emergency Medicine; ATTEND Emergency Medicine
DX: I11.0 Hypertensive heart disease with heart failure (principal); J96.21 Acute and chronic respiratory failure with hypoxia; G93.41 Metabolic encephalopathy; J18.9 Pneumonia, unspecified organism; J44.1 Chronic obstructive pulmonary disease with (acute) exacerbation; J44.0 Chronic obstructive pulmonary disease with (acute) lower respiratory infection; I50.33 Acute on chronic diastolic (congestive) heart failure; I16.0 Hypertensive urgency; I25.10 Atherosclerotic heart disease of native coronary artery without angina pectoris; F01.50 Vascular dementia, unspecified severity, without behavioral disturbance, psychotic disturbance, mood disturbance, and anxiety; Z95.810 Presence of automatic (implantable) cardiac defibrillator; I25.5 Ischemic cardiomyopathy; E87.6 Hypokalemia; I69.398 Other sequelae of cerebral infarction; E11.9 Type 2 diabetes mellitus without complications; E78.5 Hyperlipidemia, unspecified; N40.0 Benign prostatic hyperplasia without lower urinary tract symptoms; Z95.1 Presence of aortocoronary bypass graft; Z87.891 Personal history of nicotine dependence; Z79.84 Long term (current) use of oral hypoglycemic drugs; Z79.02 Long term (current) use of antithrombotics/antiplatelets; Z79.82 Long term (current) use of aspirin; Z88.8 Allergy status to other drugs, medicaments and biological substances
CPT/HCPCS: 36415; 36416; 70450; 71045; 71275; 80048; 80053; 82805; 85025; 85379; 87040; 93005; 93306; 93798; 94640; 96365; 96367; J0360; J0456; J0696; J1630; J1650; J1940; J2060; J2920; J7050; J7620; Q0162

== ENCOUNTER 2022-05-16 11:09 | Outpatient (CLI) | payer MEDICARE ==
[2022-05-16 11:59] LABS: #Eosinphils 0.1 10x3/uL (0.0-0.5); #Monocytes 0.5 10x3/uL (0.0-1.1); #Neutrophils 4.1 10x3/uL (1.5-8.4); %Basophils 0.6 % (0.0-2.0); %Eosinophils 2.1 % (0.0-6.0); %Lymphocytes 26.6 % (18.0-47.0); %Neutrophils 62.4 % (40.0-75.0); Hemoglobin 12.6 g/dL (13.5-17.5); Mean Corpuscular HGB CONC 31.7 g/dL (32.0-36.0); Mean Corpuscular Hemoglobin 29.3 pg (27.0-33.0); Mean Corpuscular Volume 92.3 fl (81.2-95.1); Mean Platelet Volume 8.9 fl (7.4-10.4); Platelet Count 182 10x3/uL (150-450); RBC Distribution Width 14.6 % (11.5-14.5); White Blood Cell (WBC) Count 6.6 10x3/uL (3.5-10.5)
[2022-05-16 12:26] LABS: ALT (SGPT) 11 U/L (8-55); AST (SGOT) 10 U/L (5-34); Albumin 3.8 g/dL (3.4-4.8); Alkaline Phosphatase 69 U/L (40-110); Anion Gap 13 mmol/L (10-20); BUN (Urea Nitrogen) 29 mg/dL (8.4-25.7); Bilirubin, Total 0.4 mg/dL (0.2-1.2); Calc. Creatinine Clearance 0 mL/min (70-130); Calcium 9.3 mg/dL (7.8-10.44); Carbon Dioxide 29 mmol/L (23-31); Chloride 105 mmol/L (98-107); Estimated GFR 60; Globulin 2.9 g/dL (2.4-3.5); Glucose 98 mg/dL (83-110); Potassium 4.5 mmol/L (3.5-5.1); Protein, Total 6.7 g/dL (5.8-8.1); Sodium 142 mmol/L (136-145)
== END 2022-05-16 11:10 | disposition home or self-care (01) ==
LOC: LABBT 11:09
PROVIDERS: ATTEND Surgery
DX: Z01.818 Encounter for other preprocedural examination (principal); K40.90 Unilateral inguinal hernia, without obstruction or gangrene, not specified as recurrent; Z20.822 Contact with and (suspected) exposure to COVID-19
CPT/HCPCS: 80053; 85025; 87811; 93005; 93010

== ENCOUNTER 2022-05-21 09:49 | Day surgery (SDC) | payer MEDICARE ==
[2022-05-16 13:59] VITALS: BMI 23.7
[2022-05-21] MEDS ORDERED: Lidocaine 1% w/Epinephrine 1:100K 20 ML VIAL ONE (10:22)
[2022-05-21] MEDS ORDERED: Bupivacaine 0.25% HCL 30 ML VIAL ONE (10:22)
[2022-05-21] MEDS ORDERED: fentaNYL Citrate/PF 100 MCG/2 ML SYRINGE ONE (11:32)
[2022-05-21] MEDS ORDERED: CEFAZOLIN 2 GM VIAL ONE (12:01)
[2022-05-21] MEDS ORDERED: Sodium Chloride 0.9% 100 ML ONE (12:01)
[2022-05-21] MEDS ORDERED: Lidocaine 1% PF 5 ML VIAL ONE (12:03)
[2022-05-21] MEDS ORDERED: Dexamethasone 20 MG/5 ML VIAL ONE (12:03)
[2022-05-21] MEDS ORDERED: Ondansetron PF 4 MG/2 ML Vial ONE (12:03)
[2022-05-21] MEDS ORDERED: PROPOFOL 200 MG/20 ML VIAL ONE (12:03)
[2022-05-21] MEDS ORDERED: ePHEDrine 50 MG/ML VIAL ONE (12:03)
== END 2022-05-21 15:25 | disposition home or self-care (01) ==
LOC: SDC 09:49
PROVIDERS: ATTEND Surgery
PROC: 0YU50JZ Supplement Right Inguinal Region with Synthetic Substitute, Open Approach (ICD-10-PCS; principal; 2022-05-21)
DX: K40.90 Unilateral inguinal hernia, without obstruction or gangrene, not specified as recurrent (principal); I25.10 Atherosclerotic heart disease of native coronary artery without angina pectoris; I42.9 Cardiomyopathy, unspecified; I48.91 Unspecified atrial fibrillation; E78.5 Hyperlipidemia, unspecified; I11.0 Hypertensive heart disease with heart failure; I50.9 Heart failure, unspecified; E11.9 Type 2 diabetes mellitus without complications; G89.29 Other chronic pain; M54.9 Dorsalgia, unspecified; M19.90 Unspecified osteoarthritis, unspecified site; N40.0 Benign prostatic hyperplasia without lower urinary tract symptoms; J44.9 Chronic obstructive pulmonary disease, unspecified; K21.9 Gastro-esophageal reflux disease without esophagitis; Z86.73 Personal history of transient ischemic attack (TIA), and cerebral infarction without residual deficits; Z79.02 Long term (current) use of antithrombotics/antiplatelets; Z79.2 Long term (current) use of antibiotics; Z79.82 Long term (current) use of aspirin; Z79.899 Other long term (current) drug therapy; Z91.041 Radiographic dye allergy status; Z95.1 Presence of aortocoronary bypass graft; Z95.810 Presence of automatic (implantable) cardiac defibrillator; Z98.1 Arthrodesis status
CPT/HCPCS: C1781; J0690; J1100; J2405; J2704; J3490; S0020

== ENCOUNTER 2022-06-20 09:58 | Outpatient (CLI) | payer MEDICARE | END 2022-06-20 09:59 | disposition home or self-care (01) | LOC: BICRAD 09:58 | PROVIDERS: ATTEND Nurse Practitioner Family | DX: I50.42 Chronic combined systolic (congestive) and diastolic (congestive) heart failure (principal) | CPT/HCPCS: 36415; 71046; 80048; 83880; 85025 ==

== ENCOUNTER 2024-01-12 00:55 | Inpatient (IN) | payer MEDICARE ==
[2024-01-12 01:28] LABS: #Monocytes 0.7 thou/uL (0.11-0.59); %Basophils 0.4 % (0.0-1.0); %Eosinophils 0.5 % (0.0-10.0); %Lymphocytes 19.3 % (21.0-51.0); %Monocytes 8.6 % (0.0-10.0); %Neutrophils 70.7 % (42.0-75.0); Hematocrit 40.3 % (42.0-52.0); Hemoglobin 13.3 g/dL (14.0-18.0); Mean Corpuscular Hemoglobin 29.4 pg (27.0-31.0); Mean Platelet Volume 9.1 fL (7.4-10.4); Platelet Count 233 10x3/uL (130-400); RBC Distribution Width 15.3 % (11.5-14.5); Red Blood Cell (RBC) Count 4.53 mill/uL (4.70-6.10); White Blood Cell (WBC) Count 8.5 10x3/uL (4.8-10.8)
[2024-01-12 01:45] LABS: PTT 23.2 sec (22.9-36.1); Prothrombin Time 13.1 sec (12.0-14.7)
[2024-01-12 01:57] LABS: ALT (SGPT) 14 U/L (8-55); AST (SGOT) 12 U/L (5-34); Alkaline Phosphatase 110 U/L (40-110); Anion Gap 14 mmol/L (10-20); BUN (Urea Nitrogen) 23 mg/dL (8.4-25.7); Bilirubin, Total 0.5 mg/dL (0.2-1.2); Calc. Creatinine Clearance 0 mL/min (70-130); Calcium 8.9 mg/dL (7.8-10.44); Carbon Dioxide 26 mmol/L (23-31); Chloride 105 mmol/L (98-107); Estimated GFR 54; Globulin 2.7 g/dL (2.4-3.5); Glucose 112 mg/dL (83-110); Potassium 4.3 mmol/L (3.5-5.1); Protein, Total 6.7 g/dL (5.8-8.1); Sodium 141 mmol/L (136-145)
[2024-01-12 04:10] LABS: Bilirubin Negative (Negative); Blood, Urine Large (Negative); Clarity Cloudy (Clear); Glucose, Urine (Dipstick) Negative (Negative); Ketone, Urine Negative (Negative); Leukocyte Trace (Negative); Nitrite Negative (Negative); Protein, Urine (Dipstick) > or equal to 300 mg/dL (Neg-Trace); Urobilinogen 0.2 mg/dL (Less than 2)
[2024-01-12 04:12] LABS: Bacteria/HPF None Seen HPF (None Seen); CAUTI Indications for Culture Pelvic or flank pain; RBC/HPF Greater than 50 HPF (0-3); Squamous Epithelial None Seen HPF (0-3); Urine Culture Reflex No No; WBC/HPF 0-3 HPF (0-3)
[2024-01-12] MEDS ORDERED: Senokot S 8.6-50 MG TAB PO PRN (07:50)
[2024-01-12] MEDS: Famotidine 20 MG TAB PO SCH (08:10)
[2024-01-12] MEDS: Acetaminophen 325 MG TAB PO PRN (08:15)
[2024-01-12 08:28] VITALS: BMI 19.9
[2024-01-12 18:57] LABS: #Eosinphils 0.1 thou/uL (0.0-0.7); #Monocytes 0.7 thou/uL (0.11-0.59); #Neutrophils 6.8 thou/uL (1.40-6.50); %Basophils 0.3 % (0.0-1.0); %Eosinophils 0.5 % (0.0-10.0); %Lymphocytes 17.8 % (21.0-51.0); %Neutrophils 73.9 % (42.0-75.0); Hematocrit 35.5 % (42.0-52.0); Hemoglobin 11.6 g/dL (14.0-18.0); Mean Corpuscular HGB CONC 32.7 g/dL (32.0-36.0); Mean Corpuscular Hemoglobin 29.3 pg (27.0-31.0); Mean Corpuscular Volume 89.6 fl (78.0-98.0); Mean Platelet Volume 8.8 fL (7.4-10.4); Platelet Count 205 10x3/uL (130-400); RBC Distribution Width 15.3 % (11.5-14.5); Red Blood Cell (RBC) Count 3.96 mill/uL (4.70-6.10); White Blood Cell (WBC) Count 9.2 10x3/uL (4.8-10.8)
[2024-01-12] MEDS: Mirtazapine 30 MG Soltab PO SCH (20:29)
[2024-01-13 04:27] LABS: #Eosinphils 0.1 thou/uL (0.0-0.7); #Neutrophils 7.3 thou/uL (1.40-6.50); %Basophils 0.4 % (0.0-1.0); %Eosinophils 0.7 % (0.0-10.0); %Lymphocytes 17.6 % (21.0-51.0); %Monocytes 9.4 % (0.0-10.0); %Neutrophils 71.5 % (42.0-75.0); Hematocrit 36.7 % (42.0-52.0); Hemoglobin 11.9 g/dL (14.0-18.0); Mean Corpuscular HGB CONC 32.4 g/dL (32.0-36.0); Mean Corpuscular Hemoglobin 28.9 pg (27.0-31.0); Mean Corpuscular Volume 89.1 fl (78.0-98.0); Mean Platelet Volume 8.9 fL (7.4-10.4); Platelet Count 229 10x3/uL (130-400); RBC Distribution Width 15.4 % (11.5-14.5); Red Blood Cell (RBC) Count 4.12 mill/uL (4.70-6.10); White Blood Cell (WBC) Count 10.2 10x3/uL (4.8-10.8)
[2024-01-13] MEDS: Famotidine 20 MG TAB PO SCH (08:51)
[2024-01-13] MEDS: LevoFLOXacin 500 MG TAB PO SCH (08:51)
[2024-01-13] MEDS: Losartan 25 MG TAB PO SCH (08:52)
[2024-01-13] MEDS: Atorvastatin Calcium 20 MG TAB PO SCH (08:52)
[2024-01-13] MEDS: Empagliflozin 10 MG TAB PO SCH (08:52)
[2024-01-13] MEDS: Spironolactone 25 MG TAB PO SCH (08:52)
[2024-01-13] MEDS ORDERED: Spironolactone 25 MG TAB PO SCH (09:00)
[2024-01-13] MEDS: Sodium Chloride 0.9% 1,000 ML IV SCH (15:17)
[2024-01-13] MEDS: Torsemide 10 MG TAB PO SCH (15:17)
[2024-01-14] MEDS: LevoFLOXacin 500 MG TAB PO SCH (05:13)
[2024-01-14 09:08] LABS: #Eosinphils 0.1 thou/uL (0.0-0.7); #Monocytes 0.5 thou/uL (0.11-0.59); #Neutrophils 4.3 thou/uL (1.40-6.50); %Basophils 0.3 % (0.0-1.0); %Eosinophils 1.3 % (0.0-10.0); %Monocytes 7.7 % (0.0-10.0); %Neutrophils 63.1 % (42.0-75.0); Hemoglobin 11.1 g/dL (14.0-18.0); Mean Corpuscular HGB CONC 32.6 g/dL (32.0-36.0); Mean Corpuscular Hemoglobin 29.4 pg (27.0-31.0); Mean Corpuscular Volume 89.9 fl (78.0-98.0); Mean Platelet Volume 8.8 fL (7.4-10.4); Platelet Count 192 10x3/uL (130-400); RBC Distribution Width 15.6 % (11.5-14.5); Red Blood Cell (RBC) Count 3.78 mill/uL (4.70-6.10); White Blood Cell (WBC) Count 6.9 10x3/uL (4.8-10.8)
[2024-01-14 09:46] LABS: Anion Gap 11 mmol/L (10-20); BUN (Urea Nitrogen) 18 mg/dL (8.4-25.7); Calc. Creatinine Clearance 48 mL/min (70-130); Calcium 8.8 mg/dL (7.8-10.44); Carbon Dioxide 24 mmol/L (23-31); Chloride 111 mmol/L (98-107); Estimated GFR 76; Glucose 98 mg/dL (83-110); Potassium 3.6 mmol/L (3.5-5.1); Sodium 142 mmol/L (136-145)
[2024-01-14] MEDS: Torsemide 10 MG TAB PO SCH (10:25)
[2024-01-14] MEDS: Spironolactone 25 MG TAB PO SCH (10:41)
[2024-01-14 12:45] VITALS: BP 154/73; TEMP 97.9
== END 2024-01-14 16:01 | disposition home or self-care (01) | DRG 723 ==
LOC: ERS 00:55 → SJJU 08:01 → OBSVTOIN 01-13 14:45
PROVIDERS: ADMIT Student in an Organized Health Care Education/Training Program; ATTEND Family Medicine
DX: C61 Malignant neoplasm of prostate (principal); N39.0 Urinary tract infection, site not specified; S32.029A Unspecified fracture of second lumbar vertebra, initial encounter for closed fracture; T83.83XA Hemorrhage due to genitourinary prosthetic devices, implants and grafts, initial encounter; R31.0 Gross hematuria; I10 Essential (primary) hypertension; E78.5 Hyperlipidemia, unspecified; I25.10 Atherosclerotic heart disease of native coronary artery without angina pectoris; I48.91 Unspecified atrial fibrillation; N32.89 Other specified disorders of bladder; N40.0 Benign prostatic hyperplasia without lower urinary tract symptoms; Z95.810 Presence of automatic (implantable) cardiac defibrillator; Z79.82 Long term (current) use of aspirin; Z79.899 Other long term (current) drug therapy; Z98.1 Arthrodesis status; Z87.891 Personal history of nicotine dependence; Z55.6 Problems related to health literacy; Z85.46 Personal history of malignant neoplasm of prostate; Y84.8 Other medical procedures as the cause of abnormal reaction of the patient, or of later complication, without mention of misadventure at the time of the procedure
CPT/HCPCS: 36415; 51701; 51702; 51798; 74176; 80048; 80053; 81001; 85025; 85610; 85730; G0103; G0378; J7050

== ENCOUNTER 2024-04-04 15:12 | Emergency (ER) | payer MEDICARE ==
[~2024-04-04 15:12] MED LIST: Iopamidol-370 76% 500 ML MDV (1 ML CHARGE) ONE
[2024-04-04 16:47] LABS: #Basophils 0.04 10x3/uL (0.0-0.2); %Basophils 0.5 % (0.0-1.0); %Eosinophils 1.2 % (0.0-10.0); %Lymphocytes 22.8 % (21.0-51.0); %Monocytes 8.5 % (0.0-10.0); %Neutrophils 66.6 % (42.0-75.0); Hematocrit 36.3 % (42.0-52.0); Hemoglobin 11.8 g/dL (14.0-18.0); Mean Corpuscular HGB CONC 32.5 g/dL (32.0-36.0); Mean Corpuscular Volume 92.4 fL (78.0-98.0); Mean Platelet Volume 9.4 fL (7.4-10.4); Platelet Count 179 10x3/uL (130-400); RBC Distribution Width 13.9 % (11.5-14.5); Red Blood Cell (RBC) Count 3.93 mill/uL (4.70-6.10)
[2024-04-04 17:15] LABS: ALT (SGPT) 9 U/L (8-55); AST (SGOT) 12 U/L (5-34); Albumin 3.3 g/dL (3.4-4.8); Alkaline Phosphatase 79 U/L (40-110); Anion Gap 13 mmol/L (10-20); BUN (Urea Nitrogen) 18 mg/dL (8.4-25.7); Bilirubin, Total 0.4 mg/dL (0.2-1.2); CK (CPK) 31 U/L (30-200); Calc. Creatinine Clearance 0 mL/min (70-130); Calcium 8.9 mg/dL (7.8-10.44); Carbon Dioxide 23 mmol/L (23-31); Chloride 111 mmol/L (98-107); Estimated GFR 71; Glucose 106 mg/dL (83-110); Potassium 3.7 mmol/L (3.5-5.1); Protein, Total 6.3 g/dL (5.8-8.1); Sodium 143 mmol/L (136-145)
[2024-04-04 17:30] LABS: Lipase 18 U/L (8-78)
[2024-04-04] MEDS ORDERED: Morphine 4 MG/ML VIAL ONE (18:21)
[2024-04-04] MEDS ORDERED: Ondansetron PF 4 MG/2 ML Vial ONE (18:21)
[2024-04-04 20:05] LABS: Bilirubin Negative (Negative); Blood, Urine Trace (Negative); Glucose, Urine (Dipstick) Negative (Negative); Ketone, Urine Negative (Negative); Leukocyte Moderate (Negative); Nitrite Negative (Negative); Protein, Urine (Dipstick) Negative (Neg-Trace); Urobilinogen 0.2 mg/dL (Less than 2); pH, Urine 5.5 (5.0-9.0)
[2024-04-04 20:07] LABS: Clarity Clear (Clear)
[2024-04-04 20:09] LABS: Bacteria/HPF 4+ HPF (None Seen); CAUTI Indications for Culture Alt mental st,lethar; Squamous Epithelial None Seen HPF (0-3); WBC/HPF Greater than 50 HPF (0-3)
[2024-04-04 20:12] LABS: Urine Culture Reflex Yes Yes
[2024-04-04] MEDS ORDERED: cefTRIAXone (ROCEPHIN) 2 GM VIAL ONE (20:46)
[2024-04-04] MEDS ORDERED: Sodium Chloride 0.9% 100 ML ONE (20:46)
[2024-04-04] MEDS ORDERED: Lidocaine 4% Patch TD SCH (21:15)
[2024-04-04] MEDS ORDERED: traMADol HCl 50 MG TAB ONE (21:24)
== END 2024-04-04 21:58 | disposition home or self-care (01) ==
LOC: ERS 15:12
DX: S32.020A Wedge compression fracture of second lumbar vertebra, initial encounter for closed fracture (principal); N39.0 Urinary tract infection, site not specified; E11.9 Type 2 diabetes mellitus without complications; I11.0 Hypertensive heart disease with heart failure; I50.9 Heart failure, unspecified; Z87.891 Personal history of nicotine dependence; Z79.82 Long term (current) use of aspirin; Z79.899 Other long term (current) drug therapy; X50.9XXA Other and unspecified overexertion or strenuous movements or postures, initial encounter
CPT/HCPCS: 74174; 80053; 81001; 82550; 83690; 85025; 87086; 96374; 96375; J0696; J2270; J2405; J3490; Q9967